=== PATIENT | female | born 1990 | race Caucasian/White ===

== ENCOUNTER → 2017-07-29 16:32 | Outpatient (CLI) | payer BC, SELFPAY ==
[2017-07-29 16:07] VITALS: BP 151/94; BMI 41.6
== END ==
PROVIDERS: Family Provider Family Medicine; PCP Family Medicine; Visit Provider Obstetrics & Gynecology
DX: O09.01 Supervision of pregnancy with history of infertility, first trimester (principal); Z3A.00 Weeks of gestation of pregnancy not specified
CPT/HCPCS: 36415; 86850; 86900

== ENCOUNTER → 2017-07-31 12:37 | Outpatient (CLI) | payer BC, SELFPAY ==
[2017-07-31 11:17] VITALS: BP 130/75
[2017-07-31 11:18] VITALS: BMI 41.6
[2017-07-31 16:57] LABS: Chlamydia Trachomatis by PCR Negative (Negative); Neisserai gonorrhoeae by PCR Negative (Negative); Probe Check PASS; Sample Adequacy Control PASS; Specimen Processing Control PASS
== END ==
PROVIDERS: Family Provider Family Medicine; PCP Family Medicine; Visit Provider Obstetrics & Gynecology
DX: O09.01 Supervision of pregnancy with history of infertility, first trimester (principal); Z3A.00 Weeks of gestation of pregnancy not specified
CPT/HCPCS: 87086; 87088; 87491; 87591

== ENCOUNTER → 2017-08-19 14:50 | Outpatient (CLI) | payer BC, SELFPAY ==
[2017-08-19 15:41] LABS: Absolute Lymphocyte Count 2.89 X10^3/ul (0.83-4.51); Absolute Neutrophil Count 8.2 X10^3/uL (2.0-7.7); Basophil# 0.02 X10^3/uL; Basophil% 0.2 % (0-1); Eosinophil# 0.09 X10^3/uL; Eosinophils% 0.8 % (0-5); Hematocrit 32.7 % (37-47); Hemoglobin 10.8 g/dl (12.0-15.0); Lymphocyte # 2.89 X10^3/ul (4.0); Lymphocyte % 24.3 % (19-41); Mean Corpuscular Hgb 25.2 pg (27.0-32.0); Mean Corpuscular Volume 76.2 fL (81-99); Mean Platelet Vol. 9.5 fl (6.2-12.0); Monocyte# 0.67 X10^3/uL; Monocyte% 5.6 % (0-10); Neutrophil # 8.18 X10^3/uL (2.7-7.7); Neutrophil % 68.9 % (47-70); Platelet Count 295 K/mm3 (150-450); RBC Distribution Width CV 15.2 % (11.6-14.6); RBC Distribution Width SD 42.5 fl (35.1-43.9); Red Blood Count 4.29 M/mm3 (4.2-5.4); White Blood Count 11.9 K/mm3 (4.4-11.0)
[2017-08-19 15:48] LABS: POSITIVE COUNT NO; POSITIVE DIFFERENTIAL NO; POSITIVE MORPHOLOGY NO
[2017-08-19 16:54] LABS: HIV - WCH Non-Reactive (Nonreactive); Rubella IgG 77.6 IU/mL
[2017-08-21 11:46] LABS: HEPATITIS B SURFACE AG Negative (Negative)
[2017-08-23 02:54] LABS: Rapid Plasmin Reagin (RPR) NONREACTIVE (NONREACTIVE)
== END ==
PROVIDERS: Family Provider Family Medicine; PCP Family Medicine; Visit Provider Obstetrics & Gynecology
DX: Z36.82 Encounter for antenatal screening for nuchal translucency (principal)
CPT/HCPCS: 85025; 86592; 86703; 86762; 86850; 86900; 87340

== ENCOUNTER → 2017-09-04 14:34 | Outpatient (CLI) | payer BC, SELFPAY ==
[2017-09-04 16:09] LABS: Glucose Challenge Gest 1H 50g 144 mg/dL (70-140)
== END ==
PROVIDERS: Family Provider Family Medicine; PCP Family Medicine; Visit Provider Obstetrics & Gynecology
DX: O09.01 Supervision of pregnancy with history of infertility, first trimester (principal); Z3A.00 Weeks of gestation of pregnancy not specified
CPT/HCPCS: 36415; 82950

== ENCOUNTER → 2017-09-18 06:49 | Outpatient (CLI) | payer BC, SELFPAY ==
[2017-09-18 07:31] LABS: Glucose GTT-Gestation. Fasting 104 mg/dL (<105)
[2017-09-18 09:36] LABS: Glucose GTT-Gestational 2 Hr 126 mg/dL (<165)
[2017-09-18 09:42] LABS: Glucose GTT-Gestational 1 Hr 193 mg/dL (<190)
[2017-09-18 10:48] LABS: Glucose GTT-Gestational 3 Hr 94 L (<145)
== END ==
PROVIDERS: Family Provider Family Medicine; PCP Family Medicine; Visit Provider Nurse Practitioner Women's Health
DX: O99.810 Abnormal glucose complicating pregnancy (principal); Z3A.00 Weeks of gestation of pregnancy not specified
CPT/HCPCS: 36415; 82951; 82952

== ENCOUNTER → 2017-09-30 11:25 | Outpatient (CLI) | payer BC, SELFPAY | PROVIDERS: Family Provider Family Medicine; PCP Family Medicine; Visit Provider Obstetrics & Gynecology Maternal & Fetal Medicine | DX: Z36.9 Encounter for antenatal screening, unspecified (principal) | CPT/HCPCS: 36415 ==

== ENCOUNTER → 2017-10-02 14:29 | Outpatient (CLI) | payer BC, SELFPAY | PROVIDERS: Visit Provider Obstetrics & Gynecology | DX: Z34.90 Encounter for supervision of normal pregnancy, unspecified, unspecified trimester (principal) | CPT/HCPCS: 87086; 87088 ==

== ENCOUNTER → 2017-10-16 11:14 | Outpatient (CLI) | payer BC, SELFPAY ==
--- NOTE | 2017-10-16 11:16 | US_ITS ---
STUDY: SECOND AND THIRD TRIMESTER OBSTETRICAL ULTRASOUND REASON FOR EXAM: Female, 27 years old. Evaluate anatomy LMP: Unknown. TECHNIQUE: Transabdominal PRIOR ULTRASOUND: None. FINDINGS: There is a single intrauterine fetus. The fetus is in a transverse lie with the head on the maternal right side. There is demonstrated cardiac activity with a heart rate of 138 bpm. There is a normal amniotic fluid volume. The largest amniotic fluid pocket measures 3.5 cm. The placenta is fundal in location. There are Grade 0 placental changes. The cervix measures 3.8 cm in length. The bilateral adnexal regions are normal. BIOMETRY: BPD: 4.6 cm: 20 weeks, 0 days HC: 17.3 cm: 19 weeks, 6 days AC: 14.9 cm: 20 weeks, 0 days FL: 3.2 cm: 20 weeks, 0 days CI: 80% FL/BPD: 69% FL/HC: FL/AC: 22% HC/AC: 1.18 age by current US: 20 weeks, 0 days. SHANTHI by current US: 03/05/2018. Estimated weight: 321 grams, +/- 47 grams, 58 %. Age by LMP: 19 weeks, 5 days. SHANTHI by LMP: 03/07/2018. ANATOMY: Gender: Female Cranium: Normal lateral ventricles. 0.6 cm Normal choroid plexus. Normal cerebellum. 1.90 cm Normal cisterna magna. 0.3 cm Normal face, nose and lips. Chest: The heart was not clearly visualized due to position. Abdomen/Pelvis: Normal diaphragm. Normal stomach. Normal abdominal wall. Normal cord insertion. There is limited visualization of a three-vessel umbilical cord. Normal kidneys. Normal bladder. Spine: Normal cervical spine. Normal thoracic spine. Normal lumbar spine. Normal sacrum. Extremities: Normal bilateral upper extremities. Normal bilateral lower extremities. US/OB Anatomy Scan IMPRESSION: Single viable intrauterine of approximately 20 weeks 0 days gestational age. A heart rate of 138 bpm is noted. There is limited visualization of the umbilical cord. The heart was not visualized due to position. No anatomical abnormalities were identified. Other findings as detailed above. Electronically Signed: Clyde Ruiz MD at 19:31 EDT , Service support ,
== END ==
LOC: US 11:15
PROVIDERS: Family Provider Family Medicine; PCP Family Medicine; Visit Provider Obstetrics & Gynecology
DX: O09.01 Supervision of pregnancy with history of infertility, first trimester (principal); Z3A.00 Weeks of gestation of pregnancy not specified
CPT/HCPCS: 76805

== ENCOUNTER → 2017-11-13 09:08 | Outpatient (CLI) | payer BC, SELFPAY ==
--- NOTE | 2017-11-13 09:11 | US_ITS ---
STUDY: SECOND AND THIRD TRIMESTER OBSTETRICAL ULTRASOUND - LIMITED REASON FOR EXAM: Female, 27 years old. Follow-up anatomy scan 4 three-vessel cord and four-chamber heart. LMP: 05/31/2017. GA (LMP) 23 week 5 day, with SHANTHI 03/07/2018. PRIOR ULTRASOUND: 10/16/2017 OB ultrasound. TECHNIQUE: Transabdominal ultrasound evaluation was performed. FINDINGS: Single live intrauterine gestation, breech presentation, amniotic fluid index 17.2 cm, cervix 5.27 cm in length, closed. Placenta anterior not low-lying. The placental tip terminates approximately 5 cm from the cervical os. cardiac rate is not recorded. Cardiac activity is observed. BIOMETRY: BPD: 5.94 cm: 24 weeks, 2 days HC: 22.04 cm: 24 weeks, 1 days AC: 18.8 cm: 23 weeks, 4 days FL: 4.18 cm: 23 weeks, 5 days Estimated weight 616 g. 39th percentile. age by current ultrasound 24 weeks 0 days, SHANTHI 03/05/2018. The heart is adequately evaluated demonstrating 4 normal-appearing cardiac chambers. The outflow tracts are not evaluated. Anterior abdominal wall is normal. Three-vessel umbilical cord is demonstrated. US/OB Limited With Biometrics IMPRESSION: Completion of anatomy survey. Satisfactory views of the heart and umbilical cord are obtained on today's study with 4 cardiac chambers are identified, and a normal 3 vessel cord. No other acute or maternal abnormality is evident. Measurements on today's study are closely concordant with expected dates. Electronically Signed: Mundo Sunni, at 17:29 EDT Tel , Service support ,
== END ==
PROVIDERS: Family Provider Family Medicine; PCP Family Medicine; Visit Provider Obstetrics & Gynecology
DX: Z04.8 Encounter for examination and observation for other specified reasons (principal); O32.1XX0 Maternal care for breech presentation, not applicable or unspecified; Z3A.24 24 weeks gestation of pregnancy
CPT/HCPCS: 76816

== ENCOUNTER → 2017-12-11 09:40 | Outpatient (CLI) | payer BC, SELFPAY ==
[2017-12-11 10:31] LABS: Absolute Lymphocyte Count 1.58 X10^3/ul (0.83-4.51); Absolute Neutrophil Count 8.1 X10^3/uL (2.0-7.7); Basophil# 0.01 X10^3/uL; Basophil% 0.1 % (0-1); Eosinophil# 0.07 X10^3/uL; Eosinophils% 0.7 % (0-5); Hematocrit 27.8 % (37-47); Hemoglobin 9.1 g/dl (12.0-15.0); Lymphocyte # 1.58 X10^3/ul (4.0); Lymphocyte % 15.3 % (19-41); Mean Corp Hgb Conc 32.7 g/gl (32-36); Mean Corpuscular Hgb 25.3 pg (27.0-32.0); Mean Corpuscular Volume 77.2 fL (81-99); Monocyte# 0.51 X10^3/uL; Monocyte% 4.9 % (0-10); Neutrophil # 8.14 X10^3/uL (2.7-7.7); Neutrophil % 78.8 % (47-70); POSITIVE COUNT NO; POSITIVE DIFFERENTIAL NO; POSITIVE MORPHOLOGY NO; Platelet Count 257 K/mm3 (150-450); RBC Distribution Width CV 14.7 % (11.6-14.6); RBC Distribution Width SD 41.9 fl (35.1-43.9); White Blood Count 10.3 K/mm3 (4.4-11.0)
[2017-12-11 10:47] LABS: Glucose Challenge Gest 1H 50g 135 mg/dL (70-140)
== END ==
PROVIDERS: Family Provider Family Medicine; PCP Family Medicine; Visit Provider Obstetrics & Gynecology
DX: O09.00 Supervision of pregnancy with history of infertility, unspecified trimester (principal)
CPT/HCPCS: 36415; 82950; 85025

== ENCOUNTER → 2017-12-18 06:55 | Outpatient (CLI) | payer BC, SELFPAY ==
[2017-12-18 08:18] LABS: Glucose GTT-Gestation. Fasting 85 mg/dL (<105)
[2017-12-18 08:49] LABS: Glucose GTT-Gestational 1 Hr 219 mg/dL (<190)
[2017-12-18 09:32] LABS: Glucose GTT-Gestational 2 Hr 147 mg/dL (<165)
[2017-12-18 10:57] LABS: Glucose GTT-Gestational 3 Hr 58 L (<145)
== END ==
LOC: LAB 06:56
PROVIDERS: Family Provider Family Medicine; PCP Family Medicine; Visit Provider Obstetrics & Gynecology
DX: O99.810 Abnormal glucose complicating pregnancy (principal)
CPT/HCPCS: 36415; 82951; 82952

== ENCOUNTER 2018-01-09 11:45 | Outpatient (CLI) | payer BC, SELFPAY ==
[2018-01-09 12:10] VITALS: BMI 43.4
[2018-01-09 13:09] LABS: Bacteria 0 SEEN /hpf (None Seen); Mucous, Urine 0 SEEN /hpf (<or=2+); Red Blood Cells-Urine 0 SEEN /hpf (0-5); Squamous Epithelial Cells - UA 0 SEEN /hpf (5-10); White Blood Cells 0 SEEN /hpf (0-5)
[2018-01-09 13:18] LABS: Color, Urine Yellow (Yellow); Glucose, Dipstick Normal (Normal); Ketone-Dipstick 5 mg/dl (Negative); Leukocyte Esterase-Dipstick Negative /ul (Negative); Nitrite-Dipstick Negative (Negative); Occult Blood-Urine Negative /ul (Negative); Protein-Dipstick Negative (Negative); Specific Gravity, Urine 1.005 (1.002-1.030); Urine Bilirubin Dipstick Negative (Negative); Urine Clarity Clear (Clear); Urine Urobilinogen Normal (Normal)
--- NOTE | 2018-01-10 03:30 | OB.TRI.NOTE ---
- Problem List (1) Abdominal pain affecting Status: Acute History of Present Illness Date of Service: 01/09/18 Was patient seen by the physician?: Yes Reason For Visit: ABD PAIN Date of Service: 01/09/18 History of Present Illness: right sided abdominal pain intermittent better with rest Allergies sumatriptan [From Imitrex] Allergy (Mild, Verified 01/08/18 09:07) Other Penicillins Allergy (Verified 01/08/18 09:07) Unknown - Pertinent Past Medical History Medical History: Past Medical History (Last Reviewed 01/08/18 @ 09:08 by Dominga Martinez) Hypertension Surgical History: Past Surgical History (Last Reviewed 01/08/18 @ 09:08 by Dominga Martinez) gallbladder surgery NST - FHR Rate Baby A Baseline: 140 Variability:: Moderate Accelerations:: 15 x 15 Decelerations:: None NST Reactive:: Yes FHR Category:: Category I Uterine Activity:: none Impression/Plan no contractions a/p abdominal pain likely round ligament pain reactive nst ut home reassuring
== END 2018-01-09 13:00 | disposition home or self-care (01) ==
LOC: WPOUT 11:57 → WP 11:58
PROVIDERS: Family Provider Family Medicine; PCP Family Medicine; Visit Provider Obstetrics & Gynecology
DX: O99.89 Other specified diseases and conditions complicating pregnancy, childbirth and the puerperium (principal); R10.9 Unspecified abdominal pain; Z3A.00 Weeks of gestation of pregnancy not specified
CPT/HCPCS: 59025; 59050; 81001; 99218; G0378

== ENCOUNTER 2018-01-15 13:00 | Outpatient (RCR) | payer BC, SELFPAY | END 2018-01-15 23:59 | LOC: NS 13:00 | PROVIDERS: Family Provider Family Medicine; PCP Family Medicine; Visit Provider Obstetrics & Gynecology | DX: O24.419 Gestational diabetes mellitus in pregnancy, unspecified control (principal); Z68.41 Body mass index [BMI] 40.0-44.9, adult; Z71.3 Dietary counseling and surveillance | CPT/HCPCS: 97802; G0108 ==

== ENCOUNTER → 2018-01-22 12:56 | Outpatient (CLI) | payer BC, SELFPAY ==
[2018-01-22 13:13] LABS: Protein, Urine (Random) 26.7 mg/dL (<11.9); Protein:Creat Ratio 162 mg/g CRE (0-200)
== END ==
PROVIDERS: Visit Provider Nurse Practitioner Women's Health
DX: R80.9 Proteinuria, unspecified (principal)
CPT/HCPCS: 82570; 84156

== ENCOUNTER → 2018-01-29 11:13 | Outpatient (CLI) | payer BC, SELFPAY ==
--- NOTE | 2018-01-29 11:15 | US_ITS ---
STUDY: SECOND AND THIRD TRIMESTER OBSTETRICAL ULTRASOUND - LIMITED REASON FOR EXAM: Female, 27 years old. growth. Gestational diabetes mellitus. G1. LMP: 05/31/2017. PRIOR ULTRASOUND: 11/13/2017. TECHNIQUE: Transabdominal ultrasound evaluation was performed. Transvaginal ultrasound utilized for cervix length assessment. FINDINGS: There is a single intrauterine fetus. The fetus is in a cephalic presentation. There is demonstrated cardiac activity with a heart rate of 136 bpm. There is a normal amniotic fluid volume. The largest amniotic fluid pocket measures 3.1 x 2.9 cm. The amniotic fluid index (ANNMARIE) is 11.3 cm. The placenta is anterior in location and is not low lying. There are Grade 1 placental changes. The cervix measures 2.6 cm in length on transvaginal ultrasound.. BIOMETRY: BPD: 8.8 cm: 35 weeks, 4 days HC: 31.7 cm: 35 weeks, 5 days AC: 31.1 cm: 35 weeks, 0 days FL: 6.8 cm: 35 weeks, 0 days Age by LMP: 34 weeks, 5 days. SHANTHI by LMP: 03/07/2018.. age by prior US: 35 weeks, 0 days. SHANTHI by prior US: 03/05/2018. age by current US: 35 weeks, 3 days. SHANTHI by current US: 03/02/2018. Estimated weight: 2596 grams, +/- 379 grams, 58 percentile. Gender: Indeterminant US/OB Limited With Biometrics IMPRESSION: 1. Single live intrauterine vertex presentation 35 week 3 day gestation with an SHANTHI of 03/02/2018, SHANTHI by LMP 03/07/2018, by prior ultrasound 03/05/2018. 2. Grade 1 anterior placenta, not low lying, no abruption. 3. Cervix length 2.6 cm on transvaginal ultrasound. 4. Normal amniotic fluid index. 5. Estimated weight 2596 g or 58 percentile. Electronically Signed: Alba Willams MD at 2:05 EDT , Service support ,
== END ==
LOC: US 11:15
PROVIDERS: Family Provider Family Medicine; PCP Family Medicine; Visit Provider Nurse Practitioner Women's Health
DX: O24.419 Gestational diabetes mellitus in pregnancy, unspecified control (principal); Z3A.00 Weeks of gestation of pregnancy not specified
CPT/HCPCS: 76816

== ENCOUNTER 2018-02-05 10:50 | Observation (INO) | payer BC, SELFPAY ==
[2018-02-05 10:51] VITALS: BMI 45.1
[2018-02-05 11:17] LABS: Mucous, Urine 0 SEEN /hpf (<or=2+)
[2018-02-05 11:26] LABS: Color, Urine Yellow (Yellow); Glucose, Dipstick Normal (Normal); Hematocrit 32.8 % (37-47); Hemoglobin 10.4 g/dl (12.0-15.0); Ketone-Dipstick Negative (Negative); Leukocyte Esterase-Dipstick 500 /ul (Negative); Mean Corp Hgb Conc 31.7 g/gl (32-36); Mean Corpuscular Hgb 24.6 pg (27.0-32.0); Mean Corpuscular Volume 77.7 fL (81-99); Mean Platelet Vol. 10.8 fl (6.2-12.0); Nitrite-Dipstick Negative (Negative); Occult Blood-Urine 250 /ul (Negative); Platelet Count 288 K/mm3 (150-450); Protein-Dipstick 30 mg/dl (Negative); RBC Distribution Width CV 16.3 % (11.6-14.6); RBC Distribution Width SD 46.2 fl (35.1-43.9); Red Blood Count 4.22 M/mm3 (4.2-5.4); Scan Indicated on CBC? Y/N NO; Urine Bilirubin Dipstick Negative (Negative); Urine Clarity Sl. Cloudy (Clear); Urine Urobilinogen Normal (Normal); White Blood Count 12.4 K/mm3 (4.4-11.0)
[2018-02-05 11:31] LABS: Squamous Epithelial Cells - UA 5-10 SEEN /hpf (5-10)
[2018-02-05 11:32] LABS: Bacteria 2+ /hpf (None Seen); Red Blood Cells-Urine 25-50 SEEN /hpf (0-5); White Blood Cells 25-50 SEEN /hpf (0-5)
[2018-02-05 11:36] LABS: Partial Thromboplast Time 26.7 Seconds (24.1-36.2)
[2018-02-05 11:46] LABS: Creatinine, Urine (random) < 13.00 mg/dL (NO RANGE EST.); Protein, Urine (Random) 51.2 mg/dL (<11.9)
[2018-02-05 11:52] LABS: AST(SGOT) 9 U/L (15-37); Alanine Aminotransfer ALT/SGPT 12 U/L (13-56); Creatinine, Serum 0.53 mg/dL (0.55-1.02); EST Glomerular Filtration Rate 145 mL/min (>60); Est Glom Filt Rate - Afr Amer 175 mL/min (>60); Uric Acid 4.1 mg/dL (2.6-6.0)
[2018-02-05] MEDS: Betamethasone/Betamethasone 30 MG/5 ML Vial 12 MG IM (12:20)
[2018-02-05] MEDS: Nitrofurantoin Macrocrystals 100 MG Capsule PO (14:01)
[2018-02-05 16:15] LABS: Bedside Glucose 131 mg/dL (70-110)
[2018-02-05 20:21] LABS: Bedside Glucose 196 mg/dL (70-110)
[2018-02-05] MEDS: Insulin Lispro 100 UNIT/ML INSULN.PEN SC (21:39)
--- NOTE | 2018-02-05 22:19 | PCM.HP.OB ---
- Problem List (1) Elevated blood pressure affecting in third trimester, antepartum Status: Acute (2) Gestational diabetes mellitus in third trimester Status: Acute Qualifiers: (3) Anemia during in third trimester Status: Acute Comment: cbc monthly (4) GBS (group B streptococcus) UTI complicating Status: Acute Qualifiers: Comment: Presumptive low growth GBS. Antibiotic sent. Repeat urine culture (5) with history of infertility Status: Acute Qualifiers: Comment: SHANTHI 03/07/18 girl on us Shane (6) screening encounter Status: Acute Comment: NT done 08/19/17- normal (7) Body mass index (BMI) of 40.1 to 44.9 in adult Status: Acute Comment: first trimester glucola and growth us q 4 weeks in third trimester and weekly NST starting at 32 weeks History Date of Admission: 02/05/18 Final SHANTHI: 03/07/18 Gestational age: 35 Weeks and 5 Days History of this : This is a 27 year-old, at 35w5d weeks gestational age presents with elevated bps. she has had a complicated by diet controlled gestational diabetes. she denies any vaginal bleeding or LOF, and admits good fm. she denies any regular ctx. she denies any POLANCO or blurry vision Medical History: Medical History (Last Reviewed 02/05/18 @ 10:22 by Bing Robins) Gestational diabetes O24.419 Hypertension I10 Surgical History: Surgical History (Last Reviewed 02/05/18 @ 10:22 by Bing Robins) gallbladder surgery Allergies sumatriptan [From Imitrex] Allergy (Mild, Verified 02/05/18 10:23) Other Penicillins Allergy (Verified 02/05/18 10:23) Unknown Home Medications: Home Medications vitamin,calcium,qdumibbe-gddl-cdfto acid tablet 1 tab PO QDAY 07/29/17 blood sugar diagnostic strips See Dose Instructions .ROUTE .MEDSUPPLY #100 ea 12/18/17 blood-glucose meter See Dose Instructions .ROUTE .MEDSUPPLY #1 ea 12/18/17 Smoking Status: Never smoker Alcohol: None Number of Fetus(es): 1 Heart Tracin moderate vairability reactive no decels cat I tracing TOCO Analysis: no decels History Past Pregnancies: Past Pregnancies Delivery Date Name GA/Weeks Outcome Route Weight Infant Gender Labor Length Anesthesia Delivery Location Provider FOB Labs: Mom[facility] Microbiology 02/05/18 10:50 Urine, Clean Catch Urine Culture - Pending Mom[facility] Labs & Results 02/05/18 02/05/18 02/05/18 10:50 10:50 10:50 WBC 12.4 H RBC 4.22 Hgb 10.4 L Hct 32.8 L MCV 77.7 L MCH 24.6 L MCHC 31.7 L RDW 16.3 H RDW Differential 46.2 H Plt Count 288 MPV 10.8 PT 13.0 INR 1.0 APTT 26.7 Creatinine Estim Creat Clear Calc Est GFR (MDRD) Af Amer Est GFR (MDRD) Non-Af Uric Acid AST ALT Urine Color Urine Clarity Urine pH Ur Specific [place] Urine Protein Urine Glucose (UA) Urine Ketones Urine Occult Blood Urine Nitrite Urine Bilirubin Urine Urobilinogen Ur Leukocyte Esterase Urine RBC Urine WBC Ur Squamous Epith Cells Urine Bacteria Urine Mucus U Random Total Protein 51.2 H Urine Creatinine < 13.00 Protein/Creatinin Ratio TNP POC Glucose 02/05/18 02/05/18 02/05/18 10:50 10:50 16:09 WBC RBC Hgb Hct MCV MCH MCHC RDW RDW Differential Plt Count MPV PT INR APTT Creatinine 0.53 L Estim Creat Clear Calc 112.50 Est GFR (MDRD) Af Amer 175 Est GFR (MDRD) Non-Af 145 Uric Acid 4.1 AST 9 L ALT 12 L Urine Color Yellow Urine Clarity Sl. Cloudy Urine pH 8.0 Ur Specific [place] 1.010 Urine Protein 30 H Urine Glucose (UA) Normal Urine Ketones Negative Urine Occult Blood 250 H Urine Nitrite Negative Urine Bilirubin Negative Urine Urobilinogen Normal Ur Leukocyte Esterase 500 H Urine RBC 25-50 SEEN Urine WBC 25-50 SEEN Ur Squamous Epith Cells 5-10 SEEN Urine Bacteria 2+ Urine Mucus 0 SEEN U Random Total Protein Urine Creatinine Protein/Creatinin Ratio POC Glucose 131 H 02/05/18 20:06 WBC RBC Hgb Hct MCV MCH MCHC RDW RDW Differential Plt Count MPV PT INR APTT Creatinine Estim Creat Clear Calc Est GFR (MDRD) Af Amer Est GFR (MDRD) Non-Af Uric Acid AST ALT Urine Color Urine Clarity Urine pH Ur Specific [place] Urine Protein Urine Glucose (UA) Urine Ketones Urine Occult Blood Urine Nitrite Urine Bilirubin Urine Urobilinogen Ur Leukocyte Esterase Urine RBC Urine WBC Ur Squamous Epith Cells Urine Bacteria Urine Mucus U Random Total Protein Urine Creatinine Protein/Creatinin Ratio POC Glucose 196 H Social History Smoking Status Never smoker Expected Infant Delivery Method: Spontaneous Vaginal Review of Systems Constitutional: Denies: Fever, Malaise Eyes: Denies: Blurred vision, Vision Change HEENT: Denies: Head Aches, Visual Changes Cardiovascular: Denies: Chest Pain, Palpitations Respiratory: Denies: Cough, Shortness of Breath, Wheezing Gastrointestinal: Denies: Abdominal Pain, Diarrhea, Nausea, Vomiting Genitourinary: Denies: Dysuria, Hematuria Musculoskeletal: Denies: Joint Pain, Muscle pain Skin: Denies: Lesions, Rash Neurological: Denies: Blurred vision, Focal weakness, Headaches Psychiatric: Denies: Anxiety, Depression Endocrine: Denies: Heat/ Cold Intolerance Hematologic/ Lymphatic: Denies: Easy Bruising, Easy Bleeding Physical Exam General: Alert, Cooperative, No apparent distress HEENT: Atraumatic, Normocephalic. Negative for: Thyromegaly, Lymphadenopathy Cardiovascular: Regular rate Lungs: Normal air movement Abdomen: Soft, Non Tender, Gravid Neurological: Deep Tendon Reflexes 2+/4 and Symmetrical, Neuro grossly intact. 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 Negative for: Vulvar lesions Estimated gestational size: Appropriate for gestational size Presentation: Cephalic Assessment/Plan All Active Problems (Last Reviewed 02/05/18 @ 10:22 by Bing Robins) Elevated blood pressure affecting in third trimester, antepartum (Acute) Abdominal pain affecting (Acute) Gestational diabetes mellitus in third trimester (Acute) Anemia during in third trimester (Acute) GBS (group B streptococcus) UTI complicating (Acute) with history of infertility (Acute) screening encounter (Acute) Body mass index (BMI) of 40.1 to 44.9 in adult (Acute) Abnormal glucose affecting (Resolved) Evaluate anatomy not seen on prior sonogram (Resolved) This is a 27 year-old, at 35w5d weeks gestational age with elevated bps 1. gestational hypertension- labs normal, 24 hour urine in process. monitor bps. plan IOL 37 weeks, dc home tomorrow if bps stable 2. prematurity- give steroids 3. GDMA1- SSI, diet
[2018-02-06] MEDS: Nitrofurantoin Macrocrystals 100 MG Capsule PO (08:23)
--- NOTE | 2018-02-06 08:24 | NURSING ---
Unable to take patient blood sugar due to downtime. Patient used her own personal device while RN in room. blood xcsrd=[id number]. No insulin to be given per sliding scale.
[2018-02-06] MEDS: Betamethasone/Betamethasone 30 MG/5 ML Vial 12 MG IM (12:15)
[2018-02-06 13:24] LABS: 24 Hour Urine Protein 979.8 mg/24HR (<150 MG/24HR); 24HR. UA Prot. Total Volume 1925 mL; Urine Protein (24 Hour) 50.9 mg/dL (<11.9)
[2018-02-06 13:26] LABS: 24HR. Urine Creatinine 1.67 g/24 HR (0.70-1.90)
== END 2018-02-06 12:35 | disposition home or self-care (01) ==
LOC: WPOUT 02-06 10:02
PROVIDERS: Admitting Provider Obstetrics & Gynecology; Family Provider Family Medicine; PCP Family Medicine; Visit Provider Obstetrics & Gynecology
DX: O13.3 Gestational [pregnancy-induced] hypertension without significant proteinuria, third trimester (principal); O24.410 Gestational diabetes mellitus in pregnancy, diet controlled; Z3A.35 35 weeks gestation of pregnancy; O99.820 Streptococcus B carrier state complicating pregnancy; O99.013 Anemia complicating pregnancy, third trimester
CPT/HCPCS: 36415; 59025; 59050; 81001; 82565; 82570; 82962; 84156; 84450; 84460; 84550; 85027; 85610; 85730; 87086; 87088; 96372; 99218; J7120; A4216; G0378; J0702

== ENCOUNTER → 2018-02-10 13:55 | Outpatient (CLI) | payer BC, SELFPAY ==
[2018-02-10 16:01] LABS: Absolute Lymphocyte Count 2.12 X10^3/ul (0.83-4.51); Absolute Neutrophil Count 9.3 X10^3/uL (2.0-7.7); Basophil# 0.01 X10^3/uL; Basophil% 0.1 % (0-1); Eosinophil# 0.05 X10^3/uL; Eosinophils% 0.4 % (0-5); Hematocrit 33.4 % (37-47); Hemoglobin 10.6 g/dl (12.0-15.0); Lymphocyte # 2.12 X10^3/ul (4.0); Mean Corp Hgb Conc 31.7 g/gl (32-36); Mean Corpuscular Volume 78.8 fL (81-99); Mean Platelet Vol. 11.4 fl (6.2-12.0); Monocyte# 0.95 X10^3/uL; Monocyte% 7.6 % (0-10); Neutrophil # 9.34 X10^3/uL (2.7-7.7); Neutrophil % 74.7 % (47-70); Platelet Count 280 K/mm3 (150-450); RBC Distribution Width CV 16.4 % (11.6-14.6); RBC Distribution Width SD 47.1 fl (35.1-43.9); Red Blood Count 4.24 M/mm3 (4.2-5.4); White Blood Count 12.5 K/mm3 (4.4-11.0)
[2018-02-10 16:04] LABS: POSITIVE COUNT NO; POSITIVE DIFFERENTIAL NO; POSITIVE MORPHOLOGY NO
[2018-02-10 17:06] LABS: ALB/GLOB Ratio 0.6 RATIO (0.9-2.4); AST(SGOT) 11 U/L (15-37); Alanine Aminotransfer ALT/SGPT 12 U/L (13-56); Albumin, Serum 2.4 g/dL (3.2-5.0); Alkaline Phosphatase 103 U/L (45-117); Anion Gap 12 (5-15); BUN 16 mg/dL (7-18); BUN/Creat Ratio 26.8 RATIO (10-20); Calcium,Total 9.1 mg/dL (8.5-10.1); Chloride 109 mmol/L (98-107); EST Glomerular Filtration Rate 126 mL/min (>60); Est Glom Filt Rate - Afr Amer 152 mL/min (>60); Globulin 4.2 g/dL (2.2-4.2); Glucose 85 mg/dL (74-106); Potassium 3.9 mmol/L (3.5-5.1); Protein, Total 6.6 g/dL (6.4-8.2); Sodium Level 143 mmol/L (136-145); Total Bilirubin < 0.10 mg/dL (0.20-1.00)
== END ==
LOC: LAB 13:57
PROVIDERS: Family Provider Family Medicine; PCP Family Medicine; Visit Provider Obstetrics & Gynecology
DX: O09.00 Supervision of pregnancy with history of infertility, unspecified trimester (principal); Z3A.00 Weeks of gestation of pregnancy not specified
CPT/HCPCS: 36415; 80053; 85025

== ENCOUNTER 2018-02-10 21:46 | Inpatient (IN) | payer BC, SELFPAY ==
[2018-02-10] MEDS: Lactated Ringers 1,000 ML 50 ML IV (22:40)
[2018-02-10 23:01] LABS: Bedside Glucose 95 mg/dL (70-110)
[2018-02-10 23:05] LABS: Hematocrit 30.1 % (37-47); Hemoglobin 10.2 g/dl (12.0-15.0); Mean Corp Hgb Conc 33.9 g/gl (32-36); Mean Corpuscular Hgb 26.2 pg (27.0-32.0); Mean Corpuscular Volume 77.4 fL (81-99); Mean Platelet Vol. 11.7 fl (6.2-12.0); Platelet Count 256 K/mm3 (150-450); RBC Distribution Width CV 16.1 % (11.6-14.6); RBC Distribution Width SD 43.7 fl (35.1-43.9); Red Blood Count 3.89 M/mm3 (4.2-5.4); White Blood Count 14.4 K/mm3 (4.4-11.0)
[2018-02-10 23:10] LABS: Scan Indicated on CBC? Y/N NO
[2018-02-10 23:18] VITALS: BMI 45.3
[2018-02-10] MEDS: Magnesium Sulfate 20 GM/500 ML BAG IV (23:30)
[2018-02-11 00:10] LABS: Bedside Glucose 93 mg/dL (70-110)
[2018-02-11] MEDS: 0.9% Normal Saline 100 ML IV.SOLN. INTRA-UTER (00:27)
[2018-02-11] MEDS: Oxytocin 30 units/NS 500 ml 30 UNITS/500 ML IV.SOLN IV (00:48)
--- NOTE | 2018-02-11 00:55 | PCM.HP.OB ---
- Problem List (1) Severe preeclampsia Status: Acute (2) Gestational diabetes mellitus in third trimester Status: Acute Qualifiers: (3) Anemia during in third trimester Status: Acute Comment: cbc monthly (4) GBS (group B streptococcus) UTI complicating Status: Acute Qualifiers: Comment: Presumptive low growth GBS. Antibiotic sent. Repeat urine culture (5) with history of infertility Status: Acute Qualifiers: Comment: SHANTHI 03/07/18 girl on us Shane (6) screening encounter Status: Acute Comment: NT done 08/19/17- normal (7) Body mass index (BMI) of 40.1 to 44.9 in adult Status: Acute Comment: first trimester glucola and growth us q 4 weeks in third trimester and weekly NST starting at 32 weeks History Date of Admission: 02/05/18 Final SHANTHI: 03/07/18 Gestational age: 36 Weeks and 4 Days History of this : This is a 27 year-old, , at 36 weeks gestational age presents with severely elevated blood pressures and intermittent headache. she received steroids last for elevated bps and had an elevated 24 hour urine. she denies any vb lof and admits good fm Medical History: Medical History (Last Reviewed 02/05/18 @ 10:22 by Bing Robins) Gestational diabetes O24.419 Hypertension I10 Surgical History: Surgical History (Last Reviewed 02/05/18 @ 10:22 by Bing Robins) gallbladder surgery Allergies sumatriptan [From Imitrex] Allergy (Mild, Verified 02/05/18 10:23) Other Penicillins Allergy (Verified 02/05/18 10:23) Unknown Home Medications: Home Medications vitamin,calcium,qrhsshyw-kakq-zaykw acid tablet 1 tab PO QDAY 07/29/17 blood sugar diagnostic strips See Dose Instructions .ROUTE .MEDSUPPLY #100 ea 12/18/17 blood-glucose meter See Dose Instructions .ROUTE .MEDSUPPLY #1 ea 12/18/17 Humalog 4 unit SQ PRN PRN 02/10/18 Smoking Status: Never smoker Alcohol: None Number of Fetus(es): 1 Heart Tracin moderate variability reactive no decels TOCO Analysis: irregular History Past Pregnancies: Past Pregnancies Delivery Date Name GA/Weeks Outcome Route Weight Gender Labor Length Anesthesia Delivery Location Provider FOB Labs: Mom's Labs & Results 02/10/18 02/10/18 02/10/18 22:40 22:40 22:44 WBC 14.4 H RBC 3.89 L Hgb 10.2 L Hct 30.1 L MCV 77.4 L MCH 26.2 L MCHC 33.9 RDW 16.1 H RDW Differential 43.7 Plt Count 256 MPV 11.7 POC Glucose 95 Blood Type A POSITIVE Antibody Screen NEGATIVE 02/10/18 23:37 WBC RBC Hgb Hct MCV MCH MCHC RDW RDW Differential Plt Count MPV POC Glucose 93 Blood Type Antibody Screen Course Did the patient receive Yes care? Labs Blood Type: A RH: POSITIVE RPR/VDRL/Syphilis Nonreactive Rubella status Immune HbSAg Negative Date Done: 08/19/17 Chlamydia Negative Gonorrhea Negative HIV/AIDS Non-Reactive Group B Strep: Collected on Admission Other Lab Procedures/Results/ GBS DONE IN OFFICE TODAY Comments: Current Obstetrical History Gestational Diabetes Yes Incompetent Cervix No Infertility Yes: took medication IUGR No Macrosomia No Hypertension/Pre-eclampsia Yes Placenta Previa/Abruption No PTL/PROM No Uterine anomaly No Oligohydramnios No Polyhydramnios No Multiple gestation No Past Medical History Asthma No Diabetes No Hypertension No Heart disease No Mitral valve prolapse No Neurologic/Seizure disorder/ Yes: migraines Migraines Kidney disease No Liver disease No Varicosities No Clotting disorders/Hx of DVT No Thyroid Dysfunction No Other medical diseases No Psychiatric disorders No Major trauma No Abnormal PAP smear No Sleep apnea No Mammogram in the last 2 years No Medications Taken During Reason for taking medication [ GIVEN LAST SAT AND 2 DOSES [employer]] Social History Marital Status: Hx Smoking No Smoking Status Never smoker Expected Infant Delivery Method: Spontaneous Vaginal Review of Systems Constitutional: Denies: Fever, Malaise Eyes: Denies: Blurred vision, Vision Change HEENT: Reports: Head Aches. Denies: Visual Changes Cardiovascular: Denies: Chest Pain, Palpitations Respiratory: Denies: Cough, Shortness of Breath, Wheezing Gastrointestinal: Denies: Abdominal Pain, Diarrhea, Nausea, Vomiting Genitourinary: Denies: Dysuria, Hematuria Musculoskeletal: Denies: Joint Pain, Muscle pain Skin: Denies: Lesions, Rash Neurological: Denies: Blurred vision, Focal weakness, Headaches Psychiatric: Denies: Anxiety, Depression Endocrine: Denies: Heat/ Cold Intolerance Hematologic/ Lymphatic: Denies: Easy Bruising, Easy Bleeding Physical Exam General: Alert, Cooperative, No apparent distress HEENT: Atraumatic, Normocephalic. Negative for: Thyromegaly, Lymphadenopathy Cardiovascular: Regular rate Lungs: Normal air movement Abdomen: Soft, Non Tender, Gravid Neurological: Deep Tendon Reflexes 2+/4 and Symmetrical, Neuro grossly intact. 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 Negative for: Vulvar lesions Estimated gestational size: Appropriate for gestational size Presentation: Cephalic Cervix Dilation (cm): 2 Station: -3 Effacement (%): 50 Assessment/Plan All Active Problems (Last Reviewed 02/05/18 @ 10:22 by Bing Robins) Elevated blood pressure affecting in third trimester, antepartum (Acute) Severe preeclampsia (Acute) Abdominal pain affecting (Acute) Gestational diabetes mellitus in third trimester (Acute) Anemia during in third trimester (Acute) GBS (group B streptococcus) UTI complicating (Acute) with history of infertility (Acute) screening encounter (Acute) Body mass index (BMI) of 40.1 to 44.9 in adult (Acute) Abnormal glucose affecting (Resolved) Evaluate anatomy not seen on prior sonogram (Resolved) This is a 27 year-old, at 36 weeks gestational age presents IOL severe preeclampsia 1. severe preeclampsia- magnesium IV and s/p one dose IV labetalol, labs today WNL 2. GBS positive urine- give ancef, nonanaphylactic allergy to PCN 3. prematurity- s/p bmz x 2 last week 4. GDMA1- q4 hour in latent phase q 1 hour in active phase.
[2018-02-11] MEDS: Labetalol 100 MG Tablet PO ×3 (01:13→20:31)
[2018-02-11 02:10] LABS: Bedside Glucose 97 mg/dL (70-110)
[2018-02-11] MEDS: Ondansetron 4 MG/2 ML Vial IV (03:04)
[2018-02-11 03:16] LABS: Bedside Glucose 99 mg/dL (70-110)
[2018-02-11] MEDS: Lactated Ringers 1,000 ML 50 ML IV (03:50)
[2018-02-11] MEDS: fentaNYL-bupivacaine (epidural) 100 ML BAG EPIDURAL ×3 (04:13→14:18)
[2018-02-11 04:26] LABS: Bedside Glucose 103 mg/dL (70-110)
[2018-02-11 05:16] LABS: Bedside Glucose 100 mg/dL (70-110)
[2018-02-11 06:20] LABS: Bedside Glucose 90 mg/dL (70-110)
[2018-02-11 07:11] LABS: Bedside Glucose 95 mg/dL (70-110)
[2018-02-11 08:20] LABS: Bedside Glucose 97 mg/dL (70-110)
[2018-02-11 09:06] LABS: Bedside Glucose 95 mg/dL (70-110)
[2018-02-11] MEDS: Cefazolin 1 GM/50 ML BAG IV ×2 (09:06→17:19)
[2018-02-11 09:56] LABS: Bedside Glucose 92 mg/dL (70-110)
[2018-02-11] MEDS: Magnesium Sulfate 20 GM/500 ML BAG IV ×2 (10:46→20:29)
[2018-02-11 11:10] LABS: Bedside Glucose 90 mg/dL (70-110)
[2018-02-11 12:10] LABS: Bedside Glucose 92 mg/dL (70-110)
[2018-02-11 13:02] LABS: Bedside Glucose 87 mg/dL (70-110)
[2018-02-11 14:15] LABS: Bedside Glucose 110 mg/dL (70-110)
[2018-02-11 15:16] LABS: Bedside Glucose 103 mg/dL (70-110)
[2018-02-11 16:06] LABS: Bedside Glucose 108 mg/dL (70-110)
[2018-02-11 16:56] LABS: Bedside Glucose 99 mg/dL (70-110)
--- NOTE | 2018-02-11 17:59 | PCM.PN.BLA ---
Progress Note fht 130-140 moderate variability reactiv chad decels toco q 4-5 inadequate. bps within normal range, on labetalol 100mg BID. magnesium has been on, pitocin wash out and then restarted pitocin. will increase pit to 24 mU to obtain adequate ctx. magnesium turned off temporarily, patient denies any POLANCO or BV. continue to monitor and obtain adequate contractions. 6 cm dilated
[2018-02-11 18:00] LABS: Bedside Glucose 105 mg/dL (70-110)
[2018-02-11 18:51] LABS: Bedside Glucose 122 mg/dL (70-110)
[2018-02-11 20:01] LABS: Bedside Glucose 101 mg/dL (70-110)
--- NOTE | 2018-02-11 21:30 | PCM.OB.VAG ---
- Problem List (1) Severe preeclampsia Status: Acute (2) Gestational diabetes mellitus in third trimester Status: Acute Qualifiers: (3) Anemia during in third trimester Status: Acute Comment: cbc monthly (4) GBS (group B streptococcus) UTI complicating Status: Acute Qualifiers: Comment: Presumptive low growth GBS. Antibiotic sent. Repeat urine culture (5) with history of infertility Status: Acute Qualifiers: Comment: SHANTHI 03/07/18 girl on us Shane (6) screening encounter Status: Acute Comment: NT done 08/19/17- normal (7) Body mass index (BMI) of 40.1 to 44.9 in adult Status: Acute Comment: first trimester glucola and growth us q 4 weeks in third trimester and weekly NST starting at 32 weeks Vaginal Delivery Maternal Presentation: Medically Indicated Induction 27 yo @ 36w4d presents for IOL severe preeclampsia. she underwent IOL with pit and a green bulb followed by pitocin and arom Method of Induction: Pitocin, Green Bulb Medical Reason for Induction: Preeclampsia, eclampsia Amniotic Membrane Rupture Type: Artificial Amniotic Fluid Description: Clear Final SHANTHI: 03/07/18 Gestational age: 36 Weeks and 4 Days Date of Procedure: 02/11/18 Pre-Operative Diagnosis: iol pree Post-Operative Diagnosis: same Surgery/ Procedure Performed: Spontaneous Vaginal Delivery Type of Anesthesia: Epidural Description of Procedure: Patient began pushing and delivered the head in the OSBALDO presentation. The head was delivered atraumatically and a loose nuchal cord ?1 was identified and easily reduced over the 's head. The anterior and posterior shoulders delivered without complication followed by the rest of the infant and the was placed on the maternal abdomen. Delayed cord clamping was employed for approximately 60 seconds. Cord was clamped and cut and gentle traction was applied to the cord and the placenta delivered spontaneously immediately following it was noted to be intact with three-vessel cord. The perineum and vagina were inspected and noted to have a small first degree laceration repaired in the usual fashion. EBL was 100 cc. Patient and tolerated delivery well. Presentation: OSBALDO Placental Delivery Description: Spontaneous Placenta Disposition: [facility] Cord Vessel Description: 3 Vessels Cord Entanglement: Around neck x 1, loose Estimated Blood Loss: 100 A gender: Female Episiotomy Description: None Laceration: Perineal Extension/lac, 1st degree Medications given after delivery: IV Pitocin Complications: None
[2018-02-11] MEDS: Oxytocin 30 units/NS 500 ml 30 UNITS/500 ML IV.SOLN 334 UNITS IV (22:35)
[2018-02-11] MEDS: Oxytocin 30 units/NS 500 ml 30 UNITS/500 ML IV.SOLN 167 UNITS IV (23:05)
[2018-02-11 23:11] LABS: Bedside Glucose 97 mg/dL (70-110)
[2018-02-11 23:11] LABS: Bedside Glucose 102 mg/dL (70-110)
[2018-02-11 23:15] LABS: Bedside Glucose 104 mg/dL (70-110)
[2018-02-12] VITALS (45 sets, daily range): BP systolic 120–198; BP diastolic 65–93; PULSE 72–100; RESP 16–18; TEMP 36.1–36.8; O2SAT 97–100
[2018-02-12] MEDS: Magnesium Sulfate 20 GM/500 ML BAG IV ×2 (01:36→13:28)
[2018-02-12] MEDS: Lactated Ringers 1,000 ML 15 ML IV (01:36)
--- NOTE | 2018-02-12 07:53 | PCM.PN.OB ---
Patient Problems: Active and Suspected Problems (Last Reviewed 02/05/18 @ 10:22 by Bing Robins) Severe preeclampsia (Acute) Subjective: No CP, SOB. Note elevated BP at 0730. Pain controlled. Baby in special care for low body temp and monitor blood sugars. - Physical Exam General: Alert, Oriented x3 Abdomen: Soft, Non Tender, - - FF below U Vital Signs Temp Pulse Resp BP Pulse Ox 97.0 F L 81 18 140/68 H 99 02/12/18 06:30 02/12/18 06:30 02/12/18 06:30 02/12/18 06:30 02/12/18 06:30 Oxygen Delivery Method Room Air Weight: 232 lb Body Mass Index (BMI) 45.3 Intake and Output for Last 24 Hours 02/10/18 02/11/18 02/12/18 23:59 23:59 23:59 Intake Total 390 / 390 Output Total 717 / 717 1550 / 1550 Balance -717 / -717 -1160 / -1160 POC Glucose 02/11/18 02/11/18 02/11/18 23:07 21:39 20:48 POC Glucose 104 102 97 02/11/18 02/11/18 02/11/18 19:41 18:42 17:53 POC Glucose 101 122 H 105 02/11/18 02/11/18 02/11/18 16:52 15:55 15:12 POC Glucose 99 108 103 02/11/18 02/11/18 02/11/18 14:12 12:54 11:59 POC Glucose 110 87 92 02/11/18 02/11/18 02/11/18 11:02 09:46 09:00 POC Glucose 90 92 95 02/11/18 07:56 POC Glucose 97 Medical Necessity - Tobacco Use Smoking Status: Never smoker Assessment/Plan All Active Problems (Last Reviewed 02/05/18 @ 10:22 by Bing Robins) Elevated blood pressure affecting in third trimester, antepartum (Acute) Severe preeclampsia (Acute) Abdominal pain affecting (Acute) Gestational diabetes mellitus in third trimester (Acute) Anemia during in third trimester (Acute) GBS (group B streptococcus) UTI complicating (Acute) with history of infertility (Acute) screening encounter (Acute) Body mass index (BMI) of 40.1 to 44.9 in adult (Acute) Abnormal glucose affecting (Resolved) Evaluate anatomy not seen on prior sonogram (Resolved) Consult Dr. Garcia and will start labetalol 100mg bid and follow hypertensive protocol if continue elevation. . Otherwise routine care.
[2018-02-12] MEDS: Labetalol 100 MG Tablet PO (08:04)
[2018-02-12 08:05] LABS: Bedside Glucose 91 mg/dL (70-110)
--- NOTE | 2018-02-12 08:58 | NURSING ---
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 States will talk to Dr. Garcia about plan of care. Dr. Garcia called RN @ [phone], updated on last two pressures 170/86 and @ 0740 159/85, orders to start Labetalol PO 100 mg BID and initiate Labetalol Hypertensive protocol if BP >160/110 x 2. Orders read back to
[2018-02-12] MEDS: Labetalol 200 MG Tablet PO (20:06)
--- NOTE | 2018-02-12 20:13 | NURSING ---
Dr. Garcia called and updated on BP @ 1930 180/93 then 10 minute follow up pressure 171/88. Plan per Dr. Garcia is 20 mg IV Labetalol NOW and up dose to 200 mg PO BID give now. Patient denies any symptoms.
[2018-02-13] VITALS (33 sets, daily range): BP systolic 109–191; BP diastolic 56–97; PULSE 63–106; RESP 16–20; TEMP 36.4–36.6; O2SAT 97–99
--- NOTE | 2018-02-13 07:53 | PCM.PN.OB ---
Patient Problems: Active and Suspected Problems (Last Reviewed 02/05/18 @ 10:22 by Bing Robins) Severe preeclampsia (Acute) Subjective: Doing well. BPs better controlled with increased dose labetalol. Denies CP, SOB. She is concerned with tremor in left hadn, has had in past and was evaluated but this has been more persistent. Baby still in special care - Physical Exam General: Alert, Oriented x3 Abdomen: Soft, Non Tender, - - FF below U Vital Signs Temp Pulse Resp BP Pulse Ox 98.1 F 77 16 134/66 H 99 02/12/18 21:30 02/13/18 03:20 02/13/18 03:20 02/13/18 03:20 02/12/18 22:30 Oxygen Delivery Method Room Air Weight: 232 lb Body Mass Index (BMI) 45.3 Intake and Output for Last 24 Hours 02/11/18 02/12/18 02/13/18 23:59 23:59 23:59 Intake Total 2312 / 2312 Output Total 717 / 717 4100 / 4100 500 / 500 Balance -717 / -717 -1788 / -1788 -500 / -500 POC Glucose 02/12/18 07:35 POC Glucose 91 Medical Necessity - Tobacco Use Smoking Status: Never smoker Assessment/Plan All Active Problems (Last Reviewed 02/05/18 @ 10:22 by Bing Robins) Elevated blood pressure affecting in third trimester, antepartum (Acute) Severe preeclampsia (Acute) Abdominal pain affecting (Acute) Gestational diabetes mellitus in third trimester (Acute) Anemia during in third trimester (Acute) GBS (group B streptococcus) UTI complicating (Acute) with history of infertility (Acute) screening encounter (Acute) Body mass index (BMI) of 40.1 to 44.9 in adult (Acute) Abnormal glucose affecting (Resolved) Evaluate anatomy not seen on prior sonogram (Resolved) PPD #2: Continue current dose labetalol 200mg bid. Blood glucose well controlled. Consult with Dr. Garcia concerning tremors. Pain controlled.
[2018-02-13] MEDS: Labetalol 200 MG Tablet PO (08:39)
[2018-02-13] MEDS: 0.9% Saline Lock 10 ML Syringe IV (08:39)
[2018-02-13] MEDS: Labetalol 100 MG/20 ML Vial 20 MG IV (17:03)
[2018-02-13] MEDS: Labetalol 200 MG Tablet 300 MG PO (18:20)
[2018-02-14] MEDS: NIFEdipine 30 MG Tablet PO (00:07)
[2018-02-14 02:30] VITALS: BP 148/68; PULSE 79; RESP 18; TEMP 36.3
[2018-02-14] MEDS: Acetaminophen 500 MG Tablet 1000 MG PO ×2 (04:15→12:36)
[2018-02-14] MEDS: 0.9% Saline Lock 10 ML Syringe IV (05:58)
[2018-02-14 06:00] VITALS: BP 130/66; PULSE 77; RESP 18; TEMP 36.2
[2018-02-14 10:00] VITALS: BP 134/62; PULSE 75; RESP 18; TEMP 36.3; O2SAT 100
[2018-02-14 12:00] VITALS: BP 127/65
[2018-02-14 12:44] VITALS: BP 157/99; PULSE 77; RESP 18; TEMP 36.4; O2SAT 97
[2018-02-14 16:20] VITALS: BP 146/72; PULSE 86; RESP 16; TEMP 36.6
[2018-02-14] MEDS: Ketorolac 10 MG Tablet PO (16:43)
--- NOTE | 2018-02-14 17:16 | PCM.PN.OB ---
Patient Problems: Active and Suspected Problems (Last Reviewed 02/05/18 @ 10:22 by Bing Robins) Severe preeclampsia (Acute) Subjective: elevated bps last night- imrpoved now with adding procardia and increasing the labetalol. no POLANCO BV - Physical Exam General: Alert, Oriented x3 Vital Signs Temp Pulse Resp BP Pulse Ox 97.8 F 86 16 146/72 H 97 02/14/18 16:20 02/14/18 16:20 02/14/18 16:20 02/14/18 16:20 02/14/18 12:44 Oxygen Delivery Method Room Air Weight: 232 lb Body Mass Index (BMI) 45.3 Intake and Output for Last 24 Hours 02/12/18 02/13/18 02/14/18 23:59 23:59 23:59 Intake Total 2312 / 2312 Output Total 4100 / 4100 500 / 500 Balance -1788 / -1788 -500 / -500 Medical Necessity - Tobacco Use Smoking Status: Never smoker Assessment/Plan All Active Problems (Last Reviewed 02/05/18 @ 10:22 by Bing Robins) Elevated blood pressure affecting in third trimester, antepartum (Acute) Severe preeclampsia (Acute) Abdominal pain affecting (Acute) Gestational diabetes mellitus in third trimester (Acute) Anemia during in third trimester (Acute) GBS (group B streptococcus) UTI complicating (Acute) with history of infertility (Acute) screening encounter (Acute) Body mass index (BMI) of 40.1 to 44.9 in adult (Acute) Abnormal glucose affecting (Resolved) Evaluate anatomy not seen on prior sonogram (Resolved) s/p severe preeclampsia- continue labetalol and procardia dc home fu in 1 week home bp monitoring precautions reviewed
--- NOTE | 2018-02-14 17:17 | PCM.DCVAG ---
Discharge Diet: No Restrictions Discharge Activity: Return to Normal Activity, May not drive while taking narcotic pain medications., May Shower May resume sexual activity in: 4-6 weeks Call your doctor if your incision/area has: Continuous Slow Oozing, Sudden Increased Bleeding, Increased Pain/ Swelling, Increased Redness, Foul Smelling Discharge Additional Instructions: If you experience any of the following, contact your healthcare provider. Bleeding that soaks a pad every hour for 2 hours Fever 100.4 or higher Unrelieved incision or abdominal pain Swelling, redness, discharge or bleeding from your incision or episiotomy site Your incision begins to separate Problems urinating (including inability to urinate or burning while urinating). Visual changes Severe headache Flu-like symptoms Pain or redness in one of both of your breasts Pain, warmth, tenderness or swelling in your legs, especially the calf area Frequent nausea and vomiting Symptoms of depression or anxiety If you experience any of the following, call 911 or go to the nearest Emergency Room. Chest pain Problems breathing Seizure activity Partial or complete paralysis of a body part, slurred speech, weakness or drooping of the face, or a sudden inability to walk or hold your balance Allergies/Adverse Reactions: Allergies sumatriptan [From Imitrex] Allergy (Mild, Verified 02/05/18 10:23) Other Penicillins Allergy (Verified 02/05/18 10:23) Unknown Medications to take at Discharge vitamin,calcium,ciobhksh-pwyl-quswz acid tablet 1 tab PO QDAY 07/29/17 blood sugar diagnostic strips See Dose Instructions .ROUTE .MEDSUPPLY #100 ea 12/18/17 blood-glucose meter See Dose Instructions .ROUTE .MEDSUPPLY #1 ea 12/18/17 Humalog 4 unit SQ PRN PRN 02/10/18 Labetalol [Trandate (Beta Nicole)] 300 mg PO BID 14 Days #100 tab 02/14/18 Naproxen [Naprosyn] 250 - 500 mg PO Q8H PRN PRN #30 tab 02/14/18 Nifedipine [Procardia Xl] 30 mg PO DAILY #30 tab.er.24 02/14/18 Oxycodone HCl/Acetaminophen [Percocet 5-325] 1 - 2 tablet PO Q4H PRN PRN 7 Days #28 tablet 02/14/18 The following prescriptions were given: Oxycodone HCl/Acetaminophen [Percocet 5-325] 1 - 2 tablet PO Q4H PRN PRN 7 Days #28 tablet PRN Reason: Moderate-Severe pain Naproxen [Naprosyn] 250 - 500 mg PO Q8H PRN PRN #30 tab PRN Reason: MILD PAIN Nifedipine [Procardia Xl] 30 mg PO DAILY #30 tab.er.24 Labetalol [Trandate (Beta Nicole)] 300 mg PO BID 14 Days #100 tab Please Follow Up With: Mili Garcia MD - [phone] When: Call to make an appointment with your doctor in 6 weeks. If you had elevated Blood pressure or 4th degree laceration you will need to be seen in 2 weeks. Primary Care Physician: Saeed Maldonado MD [Primary Care Provider] - Test Results: Test results from this visit will be discussed in further detail at your follow-up appointment, if applicable.
--- NOTE | 2018-02-14 17:17 | PCM.DC.SUM ---
Discharge Date and Diagnosis - Problem List Patient Problems: Active and Suspected Problems (Last Reviewed 02/05/18 @ 10:22 by Bing Robins) Severe preeclampsia (Acute) Date of Admission: 02/11/18 Date of Discharge: 02/14/18 - Primary Discharge Diagnosis Active and Suspected Problems (Last Reviewed 02/05/18 @ 10:22 by Bing Robins) Severe preeclampsia (Acute) Hospital Course and Treatment Consultations 02/10/18 22:36 Consult: Anesthesia Routine Comment: Reason For Exam: Procedures: - - Summary of Care Provided: The patient is a 27 year old Fpresetned for IOL secodnary to severe preeclampsia. had a uncomplicated with recovery complicated by elevated bps which were controlle diwth labetalol and then procardia. stable for dc to home on day 3. Discharge Diet: No Restrictions Discharge Activity: Return to Normal Activity, May not drive while taking narcotic pain medications., May Shower May resume sexual activity in: 4-6 weeks Call your doctor if your incision/area has: Continuous Slow Oozing, Sudden Increased Bleeding, Increased Pain/ Swelling, Increased Redness, Foul Smelling Discharge Home Medications: Medications to take at Discharge vitamin,calcium,rephddse-fbyl-ajxdr acid tablet 1 tab PO QDAY 07/29/17 blood sugar diagnostic strips See Dose Instructions .ROUTE .MEDSUPPLY #100 ea 12/18/17 blood-glucose meter See Dose Instructions .ROUTE .MEDSUPPLY #1 ea 12/18/17 Humalog 4 unit SQ PRN PRN 02/10/18 Labetalol [Trandate (Beta Nicole)] 300 mg PO BID 14 Days #100 tab 02/14/18 Naproxen [Naprosyn] 250 - 500 mg PO Q8H PRN PRN #30 tab 02/14/18 Nifedipine [Procardia Xl] 30 mg PO DAILY #30 tab.er.24 02/14/18 Oxycodone HCl/Acetaminophen [Percocet 5-325] 1 - 2 tablet PO Q4H PRN PRN 7 Days #28 tablet 02/14/18 Following Prescrptions Were Given to Patient: Oxycodone HCl/Acetaminophen [Percocet 5-325] 1 - 2 tablet PO Q4H PRN PRN 7 Days #28 tablet PRN Reason: Moderate-Severe pain Naproxen [Naprosyn] 250 - 500 mg PO Q8H PRN PRN #30 tab PRN Reason: MILD PAIN Nifedipine [Procardia Xl] 30 mg PO DAILY #30 tab.er.24 Labetalol [Trandate (Beta Nicole)] 300 mg PO BID 14 Days #100 tab Primary Care Physician: Saeed Maldonado MD [Primary Care Provider] - Please Follow Up With: Mili Garcia MD - [phone] Medical Necessity - Tobacco Use Smoking Status: Never smoker Meaningful Use Info Meaningful Use Diagnoses (Choose all that apply): None applicable
--- NOTE | 2018-02-14 18:47 | NURSING ---
DISCHARGED TO [facility]. PATIENT IN [facility].
== END 2018-02-14 18:10 | disposition home or self-care (01) | DRG 774 ==
LOC: WPOUT 22:22 → WP 22:22 → WPOUT 22:31
PROVIDERS: Admitting Provider Obstetrics & Gynecology; Family Provider Family Medicine; PCP Family Medicine; Visit Provider Obstetrics & Gynecology
DX: O14.14 Severe pre-eclampsia complicating childbirth (principal); O75.3 Other infection during labor; O98.82 Other maternal infectious and parasitic diseases complicating childbirth; O24.424 Gestational diabetes mellitus in childbirth, insulin controlled; B95.1 Streptococcus, group B, as the cause of diseases classified elsewhere; O69.81X0 Labor and delivery complicated by cord around neck, without compression, not applicable or unspecified; O70.0 First degree perineal laceration during delivery; O99.02 Anemia complicating childbirth; D64.9 Anemia, unspecified; Z3A.36 36 weeks gestation of pregnancy; Z37.0 Single live birth
CPT/HCPCS: 59025; 59050; 82962; 85027; 86850; 86900; 99218; J7120; A4216; G0378; J2405

== ENCOUNTER → 2018-03-26 15:41 | Outpatient (CLI) | payer BC, SELFPAY ==
[2018-03-31 13:23] LABS: HPV Reflexed? NOT INDICATED
== END ==
PROVIDERS: Family Provider Family Medicine; PCP Family Medicine; Referring Provider Obstetrics & Gynecology; Visit Provider Obstetrics & Gynecology
DX: Z12.4 Encounter for screening for malignant neoplasm of cervix (principal)
CPT/HCPCS: 88175; G0145

== ENCOUNTER → 2018-04-29 06:56 | Outpatient (CLI) | payer BC, SELFPAY ==
[2018-04-29 10:18] LABS: Glucose 2 Hour Postprandial 108 mg/dL (<140)
== END ==
PROVIDERS: Family Provider Family Medicine; PCP Family Medicine; Referring Provider Obstetrics & Gynecology; Visit Provider Obstetrics & Gynecology
DX: O24.439 Gestational diabetes mellitus in the puerperium, unspecified control (principal)
CPT/HCPCS: 36415; 82950

== ENCOUNTER → 2020-01-26 06:12 | Outpatient (CLI) | payer BC, SELFPAY ==
[2018-05-14 10:01] VITALS: BMI 42.3
--- NOTE | 2020-01-26 07:48 | STRESSREP ---
Stress Test Report Date: 01-26-2020 Procedure: Exercise tolerance test/imaging study Indications: Chest pain Consent: Per the patient Procedure: The patient exercised on a Tan protocol for 6 minutes completing Stage II achieving a peak heart rate of 162 bpm (85 % predicted maximal heart rate) with a peak blood pressure 172/64 mmHg and a peak MET capacity of 7 METs. The baseline ECG demonstrated normal sinus rhythm. The peak exercise ECG demonstrated no obvious ECG changes. There were no cardiac dysrhythmias pretest, during exercise, or recovery. The functional capacity was considered average. There was no complaint of chest discomfort during exercise or recovery. The examination was discontinued secondary to dyspnea. Impression: 1. Technically adequate (percent predicted maximal heart rate greater than 85%) exercise tolerance test 2. Peak exercise ECG with no obvious ECG changes 3. There were no cardiac dysrhythmias pretest, during exercise, or recovery 4. Nuclear images pending Myocardial perfusion imaging study: Technique: The patient was injected with 14.8 mCi of technetium 99m Cardiolite and subsequently rest SPECT Cardiolite nuclear imaging was obtained in the horizontal long, vertical long, and short axis views. The patient exercised on a Tan protocol for 6 minutes completing Stage II achieving a peak heart rate of 162 bpm (85 % predicted maximal heart rate) with a peak blood pressure 172/64 mmHg and a peak MET capacity of 7 METs. The patient was injected with 44.1 mCi of technetium 99m Cardiolite and subsequently stress SPECT Cardiolite nuclear imaging was obtained in the horizontal long, vertical long, and short axis views. A gated Cardiolite study at peak stress was obtained. Interpretation: Rest and stress SPECT Cardiolite nuclear imaging status post realignment, normalization, and attenuation correction, demonstrates appearance at rest of a small area of subtle diminished tracer uptake near the mid to distal lateral segments which appears to normalize following stress. There is end systolic thickening and brightening. The gated Cardiolite study demonstrates myocardial thickening and inward wall motion. The reported LVEF is 60 %. Impression: 1. Rest and stress SPECT Cardiolite nuclear imaging demonstrate at rest a small area of diminished myocardial perfusion uptake in portions of the mid to distal lateral segments which appear to normalize following stress appearing compatible shifting soft tissue attenuation/artifact with no myocardial perfusion changes considered diagnostic for associated stress-induced myocardial ischemia. 2. The gated Cardiolite study reports an LVEF of 60 %. This note was generated with Dragon dictation software. It may contain incorrect words, spelling, and punctuation that were not noted in checking the note before signing.
== END ==
LOC: CVS 06:17
PROVIDERS: PCP Family Medicine; Referring Provider Family Medicine; Visit Provider Family Medicine
DX: R07.89 Other chest pain (principal); Z82.49 Family history of ischemic heart disease and other diseases of the circulatory system
CPT/HCPCS: 78452; 93017; A9500; A4216

== ENCOUNTER → 2020-03-17 06:49 | Outpatient (CLI) | payer BC, SELFPAY ==
[2020-03-07 15:13] VITALS: BMI 42.3
[2020-03-17 07:49] LABS: Glucose GTT- Fasting 109 mg/dL (74-106)
[2020-03-17 08:54] LABS: Glucose GTT-30 minutes 168 mg/dL (110-170)
[2020-03-17 08:57] LABS: Glucose GTT- 1 Hour 203 mg/dL (120-170)
[2020-03-17 10:02] LABS: Glucose GTT- 2 Hour 158 mg/dL (70-120)
[2020-03-17 11:12] LABS: Glucose GTT- 3 Hour 107 mg/dL (74-106)
== END ==
LOC: LAB 06:50
PROVIDERS: PCP Family Medicine; Referring Provider Obstetrics & Gynecology; Visit Provider Obstetrics & Gynecology
DX: Z13.1 Encounter for screening for diabetes mellitus (principal)
CPT/HCPCS: 36415; 82951; 82952

== ENCOUNTER 2020-04-12 08:58 | Outpatient (RCR) | payer BC, SELFPAY ==
[2018-05-14 10:01] VITALS: BMI 42.3
[2020-03-18 09:38] VITALS: BMI 42.3
== END 2020-04-12 23:59 | disposition home or self-care (01) ==
LOC: NS 08:58
PROVIDERS: Visit Provider Nurse Practitioner Women's Health
DX: Z71.3 Dietary counseling and surveillance (principal); E66.01 Morbid (severe) obesity due to excess calories; Z68.42 Body mass index [BMI] 45.0-49.9, adult
CPT/HCPCS: 97802

== ENCOUNTER → 2020-10-28 14:38 | Outpatient (CLI) | payer OTHER, SELFPAY ==
[2020-10-28 14:13] VITALS: BMI 42.3
[2020-10-28 17:21] LABS: Hemoglobin A1c 5.3 % (3.8-5.6)
== END ==
PROVIDERS: PCP Internal Medicine; Referring Provider Internal Medicine; Visit Provider Internal Medicine
DX: R73.03 Prediabetes (principal)
CPT/HCPCS: 36415; 83036

== ENCOUNTER → 2021-03-09 | Outpatient (CLI) | payer OTHER, SELFPAY ==
[2021-03-13 16:10] LABS: HPV APTIMA, High Risk Negative (Negative)
== END | disposition home or self-care (01) ==
LOC: LABSPEC 13:25
PROVIDERS: PCP Internal Medicine; Visit Provider Obstetrics & Gynecology
DX: Z12.4 Encounter for screening for malignant neoplasm of cervix (principal)
CPT/HCPCS: 87624; 88175; G0145

== ENCOUNTER → 2021-10-17 | Outpatient (CLI) | payer OTHER, SELFPAY ==
[2021-10-17 17:27] LABS: Hemoglobin A1c 5.3 % (3.8-5.6)
== END | disposition home or self-care (01) ==
LOC: LAB 14:11
PROVIDERS: PCP Internal Medicine; Referring Provider Nurse Practitioner Family; Visit Provider Nurse Practitioner Family
DX: R73.03 Prediabetes (principal)
CPT/HCPCS: 36415; 83036

== ENCOUNTER 2021-12-18 15:30 | Outpatient (RCR) | payer OTHER, SELFPAY | END 2021-12-21 23:59 | LOC: NS 15:30 | PROVIDERS: PCP Internal Medicine; Referring Provider Obstetrics & Gynecology; Visit Provider Obstetrics & Gynecology | DX: Z71.3 Dietary counseling and surveillance (principal); E66.9 Obesity, unspecified; Z68.41 Body mass index [BMI] 40.0-44.9, adult | CPT/HCPCS: 97802; 97803 ==

== ENCOUNTER → 2021-12-20 | Outpatient (CLI) | payer OTHER, SELFPAY ==
[2021-12-20 16:04] LABS: Basophil# 0.04 X10^3/uL; Basophil% 0.4 % (0-1); Eosinophil# 0.18 X10^3/uL; Eosinophils% 1.8 % (0-5); Hematocrit 37.7 % (37-47); Hemoglobin 12.5 g/dL (12.0-15.0); Lymphocyte % 30.7 % (19-41); Mean Corp Hgb Conc 33.2 g/dL (32-36); Mean Corpuscular Hgb 25.9 pg (27.0-32.0); Mean Corpuscular Volume 78.2 fL (81-99); Mean Platelet Vol. 10.3 fl (6.2-12.0); Monocyte# 0.54 X10^3/uL; Monocyte% 5.5 % (0-10); NRBC Flagged by Analyzer 0 % (0-5); Neutrophil # 5.98 X10^3/uL (2.7-7.7); Neutrophil % 61.3 % (47-70); Platelet Count 286 K/mm3 (150-450); RBC Distribution Width CV 14.1 % (11.6-14.6); RBC Distribution Width SD 39.8 fl (35.1-43.9); Red Blood Count 4.82 M/mm3 (4.2-5.4); White Blood Count 9.8 K/mm3 (4.4-11.0)
[2021-12-20 16:38] LABS: Thyroid Stim Hormone (TSH) 2.63 uIU/mL (0.358-3.74)
[2021-12-20 16:41] LABS: Vitamin D,25 Hydroxy 12.9 ng/mL
== END | disposition home or self-care (01) ==
LOC: LAB 15:16
PROVIDERS: PCP Internal Medicine; Referring Provider Obstetrics & Gynecology; Visit Provider Obstetrics & Gynecology
DX: R53.83 Other fatigue (principal)
CPT/HCPCS: 36415; 82306; 84443; 85025

== ENCOUNTER 2022-01-08 15:21 | Outpatient (RCR) | payer OTHER, SELFPAY | END 2022-01-21 23:59 | LOC: NS 15:21 | PROVIDERS: PCP Internal Medicine; Referring Provider Obstetrics & Gynecology; Visit Provider Obstetrics & Gynecology | DX: Z71.3 Dietary counseling and surveillance (principal); E66.9 Obesity, unspecified; Z68.41 Body mass index [BMI] 40.0-44.9, adult | CPT/HCPCS: 97803 ==

== ENCOUNTER 2022-02-21 08:30 | Outpatient (RCR) | payer OTHER, SELFPAY | END 2022-02-21 23:59 | LOC: NS 08:30 | PROVIDERS: PCP Internal Medicine; Referring Provider Obstetrics & Gynecology; Visit Provider Obstetrics & Gynecology | DX: Z71.3 Dietary counseling and surveillance (principal); E66.9 Obesity, unspecified; Z68.41 Body mass index [BMI] 40.0-44.9, adult | CPT/HCPCS: 97803 ==

== ENCOUNTER → 2022-03-19 | Outpatient (CLI) | payer OTHER, SELFPAY ==
[2022-03-19 13:40] LABS: Vitamin D,25 Hydroxy 37.5 ng/mL
[2022-03-19 13:42] LABS: ALB/GLOB Ratio 0.8 RATIO (0.9-2.4); AST(SGOT) 15 U/L (15-37); Alanine Aminotransfer ALT/SGPT 28 U/L (13-56); Albumin, Serum 3.5 g/dL (3.2-5.0); Alkaline Phosphatase 55 U/L (45-117); Anion Gap 7 (5-15); BUN 12 mg/dL (7-18); BUN/Creat Ratio 22.5 RATIO (10-20); Calcium,Total 8.9 mg/dL (8.5-10.1); Chloride 106 mmol/L (98-107); Cholesterol 163 mg/dL (200); Creatinine, Serum 0.53 mg/dL (0.55-1.02); EST Glomerular Filtration Rate 140 mL/min (>60); Est Glom Filt Rate - Afr Amer 169 mL/min (>60); Globulin 4.3 g/dL (2.2-4.2); Glucose 91 mg/dL (74-106); High Density Lipoprotein 31 mg/dL; Protein, Total 7.8 g/dL (6.4-8.2); Sodium Level 138 mmol/L (136-145); Triglycerides 310 mg/dL; Very Low Density Lipoprotein 62 mg/dL (5-40)
== END | disposition home or self-care (01) ==
PROVIDERS: PCP Internal Medicine; Referring Provider Internal Medicine; Visit Provider Internal Medicine
DX: E78.1 Pure hyperglyceridemia (principal); E55.9 Vitamin D deficiency, unspecified
CPT/HCPCS: 36415; 80053; 80061; 82306

== ENCOUNTER 2022-03-21 08:15 | Outpatient (RCR) | payer OTHER, SELFPAY | END 2022-03-23 23:59 | LOC: NS 08:15 | PROVIDERS: PCP Internal Medicine; Referring Provider Obstetrics & Gynecology; Visit Provider Obstetrics & Gynecology | DX: Z71.3 Dietary counseling and surveillance (principal); E66.9 Obesity, unspecified; Z68.41 Body mass index [BMI] 40.0-44.9, adult | CPT/HCPCS: 97803 ==

== ENCOUNTER 2022-04-04 08:30 | Outpatient (RCR) | payer OTHER, SELFPAY | END 2022-04-23 23:59 | LOC: NS 08:30 | PROVIDERS: PCP Internal Medicine; Referring Provider Obstetrics & Gynecology; Visit Provider Obstetrics & Gynecology | DX: Z71.3 Dietary counseling and surveillance (principal); E66.9 Obesity, unspecified; Z68.41 Body mass index [BMI] 40.0-44.9, adult | CPT/HCPCS: 97803 ==

== ENCOUNTER → 2022-04-17 | Outpatient (CLI) | payer OTHER, SELFPAY ==
--- NOTE | 2022-04-17 10:32 | EKG12_ITS ---
Test Reason : MED CHANGE Blood Pressure : / mmHG Vent. Rate : 081 BPM Atrial Rate : 081 BPM P-R Int : 146 ms QRS Dur : 086 ms QT Int : 396 ms P-R-T Axes : 021 067 040 degrees QTc Int : 460 ms Normal sinus rhythm Normal ECG Confirmed by JAJA BUCIO, STACEY ([id number]), editor managing newspaper NETTA MARES ([id number]) on 04/18/2022 11:05:11 AM Referred By: Mili Garcia Confirmed By:STACEY WILKINSON MD
== END | disposition home or self-care (01) ==
LOC: PSN 10:32
PROVIDERS: PCP Internal Medicine; Referring Provider Obstetrics & Gynecology; Visit Provider Obstetrics & Gynecology
DX: E88.81 Metabolic syndrome and other insulin resistance (principal)
CPT/HCPCS: 93005

== ENCOUNTER 2022-05-15 10:00 | Outpatient (RCR) | payer OTHER, SELFPAY | END 2022-05-23 23:59 | LOC: NS 10:00 | PROVIDERS: PCP Internal Medicine; Referring Provider Obstetrics & Gynecology; Visit Provider Obstetrics & Gynecology | DX: Z71.3 Dietary counseling and surveillance (principal); E66.9 Obesity, unspecified; Z68.41 Body mass index [BMI] 40.0-44.9, adult | CPT/HCPCS: 97803 ==

== ENCOUNTER 2022-06-05 08:40 | Outpatient (RCR) | payer OTHER, SELFPAY | END 2022-06-23 23:59 | LOC: NS 08:40 | PROVIDERS: PCP Internal Medicine; Referring Provider Obstetrics & Gynecology; Visit Provider Obstetrics & Gynecology | DX: Z71.3 Dietary counseling and surveillance (principal); E66.9 Obesity, unspecified; Z68.41 Body mass index [BMI] 40.0-44.9, adult | CPT/HCPCS: 97803 ==

== ENCOUNTER 2022-06-26 08:30 | Outpatient (RCR) | payer OTHER, SELFPAY | END 2022-07-24 23:59 | LOC: NS 08:30 | PROVIDERS: PCP Internal Medicine; Referring Provider Obstetrics & Gynecology; Visit Provider Obstetrics & Gynecology | DX: Z71.3 Dietary counseling and surveillance (principal); E66.9 Obesity, unspecified; Z68.41 Body mass index [BMI] 40.0-44.9, adult | CPT/HCPCS: 97802 ==

== ENCOUNTER 2022-08-08 15:37 | Emergency (ER) | payer OTHER, SELFPAY ==
[2022-08-08 15:38] VITALS: BP 179/101; PULSE 100; RESP 18; TEMP 36.2; O2SAT 99; BMI 41.0
--- NOTE | 2022-08-08 15:59 | EDS_ITS ---
HPI History of Present Illness Chief Complaint: Back Narrative Narrative: Patient states that she tweaked her back on work Saturday. She is not exactly sure what she did. But she did a lot of lifting bending and pushing. She has been sore in the left lower back ever since. Occasionally the pain radiates down the left lateral thigh but does not even get to the knee. She has no bowel or bladder dysfunction. No weakness. No numbness beyond the knee. No recent infections. She states occasionally that feels like the pain might be moving up her back but it is mostly at the left lower back. No fevers or chills. No coughing or trouble breathing's with sciatica before. She tried some lvdx-wvr-lbvmfuj Motrin and Aleve and hot showers. They help temporarily. [facility] Medical History Abnormal glucose Anxiety with depression Borderline type 2 diabetes mellitus GERD (gastroesophageal reflux disease) Gestational diabetes Hyperlipidemia Hypertension Migraines Preventative health care Right hip pain Seasonal allergies Home Medications fenofibrate 54 mg tablet 54 mg PO DAILY 05/14/22 [History Last Taken Unknown] triamterene 37.5 mg-hydrochlorothiazide 25 mg tablet 1 tab PO QAM 05/14/22 [History Last Taken Unknown] phentermine 37.5 mg tablet (Adipex-P) 37.5 mg PO QDAY #30 tabs 05/15/22 [Rx Last Taken Unknown] cyclobenzaprine 10 mg tablet 10 mg PO TID PRN Muscle Spasm #20 TABLETS 08/08/22 [Rx Last Taken Unknown] naproxen 500 mg tablet 500 mg PO BID #14 tabs 08/08/22 [Rx Last Taken Unknown] Allergy/AdvReac Type Severity Reaction Status Date / Time sumatriptan [From Imitrex] Allergy Mild Other Verified 08/08/22 15:41 Penicillins Allergy Unknown Verified 08/08/22 15:41 Family History Grandfather Myocardial infarction, Onset Age: 52 Brother Asthma Mother Anemia Hypertension Surgical History Hx laparoscopic cholecystectomy Social History household members: spouse current occupational status: employed current occupation: [employer] Smoking Status: Never smoker Electronic Cigarette Use: not used alcohol intake: never substance use type: does not use caffeine: Yes what type of physical activity do you participate in: none seatbelt use: always do you feel safe at home: Yes additional social history: Mary Hopper Patient works in [employer] dietary ROS ROS ED Constitutional Constitutional ED: Denies chills, fever(s) or subjective ENT ENT ED: Denies sore throat Cardiovascular Cardiovascular: Denies chest pain or palpitations Respiratory/Chest Respiratory/Chest: Denies dyspnea Gastrointestinal Gastrointestinal: Denies abdominal pain, diarrhea, nausea or vomiting Genitourinary Genitourinary ED: Denies dysuria, hematuria or urinary frequency Musculoskeletal Musculoskeletal: Reports back pain; Denies neck pain Integumentary Denies abscess, Abrasions or rash Neurologic Neurologic: Denies paresthesias or weakness Endocrine Endocrinology: Denies polydipsia or polyuria Hematologic/Lymphatic Hematologic/Lymphatic: Denies easy bleeding or easy bruising Allergic/Immunologic Allergic/Immunologic ED: Denies urticaria EXAM Physical Exam Narrative Exam Narrative: Patient is awake alert and appropriate. She is consistent historian. She looks comfortable laying in bed. HEENT shows no sign of trauma. Mucous membranes are moist Neck shows no JVD. She has good range of motion and no tenderness. Chest shows easy respirations. Breath sounds are clear bilaterally. No pain with a deep breath. Saturations are 99% on room air showing no hypoxia. Heart is regular with a rate about 90. Peripheral pulses are normal x4 Abdomen is obese but benign. Back shows some low left paraspinal tenderness. She states she feels tight a little bit across her shoulders on the right but no real tenderness. There were no rashes seen. No central or bony tenderness. Extremities show no swelling. There is no cord. No asymmetry. No vesicles. Skin shows no rash Const Vital Signs: 08/08/22 15:38 Temperature 97.1 F L Temperature Source Temporal Pulse Rate 100 Respiratory Rate 18 Blood Pressure 179/101 H Blood Pressure Mean 127 Pulse Ox 99 Oxygen Delivery Method Room Air MDM MDM MDM Narrative Medical decision making narrative: Patient has a history of sciatica. She has had this before. She did do lifting straining and bending. She has an exam consistent with this. I do not think since x-rays or further imaging is necessary. She is not having any indication of neurologic deficit or recent infections. She has no red flags of back pain. There is no urinary symptoms and I do not think a UA is needed. No sign of fevers chills or infection or kidney disease that would prompt CBC or electrolytes. We will treat her with nonsteroidals muscle relaxants and I encouraged her to try ice rather than heat. We discussed reasons to return. Discharge Plan Triage Chief Complaint: Back ED Provider: Binh Neff Dx/Rx/DC Orders Clinical Impression: Lumbar back pain Instructions: ED Back Sprain/Strain Prescriptions: New cyclobenzaprine [cyclobenzaprine] 10 mg tablet 10 mg PO TID PRN (Reason: Muscle Spasm) Qty: 20 0RF naproxen 500 mg tablet 500 mg PO BID Qty: 14 0RF No Action triamterene-hydrochlorothiazid 37.5-25 mg tablet 1 tab PO QAM fenofibrate 54 mg tablet 54 mg PO DAILY phentermine [Adipex-P] 37.5 mg tablet 37.5 mg PO QDAY Qty: 30 0RF Rx Instructions: BMI 41 Primary Care Provider: Meghan Bowers Referrals: Meghan Bowers MD [Primary Care Provider] - 3-5 Days if not improving Disposition Disposition: Home, Self Care
== END 2022-08-08 16:29 | disposition home or self-care (01) ==
LOC: ED 16:02
PROVIDERS: Emergency Provider Emergency Medicine; PCP Internal Medicine; Visit Provider Emergency Medicine
DX: M54.50 Low back pain, unspecified (principal); I10 Essential (primary) hypertension; E78.5 Hyperlipidemia, unspecified; Z87.39 Personal history of other diseases of the musculoskeletal system and connective tissue
CPT/HCPCS: 99281; 99282

== ENCOUNTER → 2022-11-22 | Outpatient (CLI) | payer OTHER, SELFPAY ==
[2022-11-22 14:08] LABS: Hemoglobin A1c 5.4 % (3.8-5.6)
== END | disposition home or self-care (01) ==
PROVIDERS: PCP Internal Medicine; Referring Provider Nurse Practitioner Women's Health; Visit Provider Nurse Practitioner Women's Health
DX: E88.81 Metabolic syndrome and other insulin resistance (principal); R73.03 Prediabetes
CPT/HCPCS: 36415; 83036

== ENCOUNTER → 2023-03-21 | Outpatient (CLI) | payer OTHER, SELFPAY ==
[2023-03-21 11:17] LABS: T4 Free Direct 0.99 ng/dL (0.76-1.46); Thyroid Stim Hormone (TSH) 2.38 uIU/mL (0.358-3.74)
[2023-03-22 04:07] LABS: Thyroid Peroxidase AB < 9 IU/mL (0-34)
== END | disposition home or self-care (01) ==
LOC: LAB 09:48
PROVIDERS: Referring Provider Obstetrics & Gynecology; Visit Provider Obstetrics & Gynecology
DX: E01.0 Iodine-deficiency related diffuse (endemic) goiter (principal)
CPT/HCPCS: 36415; 84439; 84443; 86376

== ENCOUNTER → 2023-04-03 | Outpatient (CLI) | payer OTHER, SELFPAY ==
--- NOTE | 2023-04-03 11:44 | US_ITS ---
INDICATION: thyromegaly EXAMINATION: Ultrasound US Thyroid (eg thyroid, parathyroid, parotid) TECHNIQUE: Mijares scale and color doppler imaging was performed of the thyroid gland. COMPARISON: No relevant prior comparison study available FINDINGS: RIGHT THYROID LOBE: 4.7 x 1.2 x 1.5 cm, volume 4.4 mL. Parenchyma: The gland echotexture is homogenous. Thyroid vascularity is normal. LEFT THYROID LOBE: 3.8 x 1.4 x 1.1 cm, volume 2.9 mL. Parenchyma: The gland echotexture is homogenous. Thyroid vascularity is normal. ISTHMUS: 0.3 cm in maximum AP dimension. Estimated total number of nodules greater than equal to 1 cm: 0. [employer] Teacher nodules are described as follows: LYMPH NODES: No lymphadenopathy is seen in the tissue surrounding the thyroid gland. US/Thyroid IMPRESSION: Normal thyroid ultrasound. Electronically Signed: Joss Wall MD at 16:51 EDT ,
== END | disposition home or self-care (01) ==
LOC: US 11:44
PROVIDERS: Referring Provider Obstetrics & Gynecology; Visit Provider Obstetrics & Gynecology
DX: E01.0 Iodine-deficiency related diffuse (endemic) goiter (principal)
CPT/HCPCS: 76536

== ENCOUNTER → 2023-06-25 | Outpatient (CLI) | payer OTHER, SELFPAY ==
[2023-06-25 11:23] LABS: Absolute Lymphocyte Count 2.93 X10^3/uL (0.83-4.51); Absolute Neutrophil Count 5.6 X10^3/uL (2.0-7.7); Basophil# 0.04 X10^3/uL; Basophil% 0.4 % (0-1); Eosinophil# 0.16 X10^3/uL; Eosinophils% 1.7 % (0-5); Hematocrit 43.2 % (37-47); Hemoglobin 13.9 g/dL (12.0-15.0); Lymphocyte # 2.93 X10^3/ul (0.83-4.51); Lymphocyte % 31.2 % (19-41); Mean Corp Hgb Conc 32.2 g/dL (32-36); Mean Corpuscular Hgb 25.9 pg (27.0-32.0); Mean Corpuscular Volume 80.6 fL (81-99); Mean Platelet Vol. 10.8 fl (6.2-12.0); Monocyte% 6.4 % (0-10); NRBC Flagged by Analyzer 0 % (0-5); Neutrophil # 5.62 X10^3/uL (2.7-7.7); Platelet Count 369 K/mm3 (150-450); RBC Distribution Width CV 14.4 % (11.6-14.6); RBC Distribution Width SD 41.9 fl (35.1-43.9); Red Blood Count 5.36 M/mm3 (4.2-5.4); White Blood Count 9.4 K/mm3 (4.4-11.0)
[2023-06-25 12:00] LABS: Vitamin D,25 Hydroxy 16.2 ng/mL
[2023-06-25 12:01] LABS: ALB/GLOB Ratio 0.8 RATIO (0.9-2.4); AST(SGOT) 17 U/L (15-37); Alanine Aminotransfer ALT/SGPT 31 U/L (13-56); Albumin, Serum 3.7 g/dL (3.2-5.0); Alkaline Phosphatase 57 U/L (45-117); Anion Gap 3 (5-15); BUN 12 mg/dL (7-18); BUN/Creat Ratio 17.4 RATIO (10-20); Calcium,Total 10.3 mg/dL (8.5-10.1); Chloride 104 mmol/L (98-107); Cholesterol 222 mg/dL (200); Creatinine, Serum 0.69 mg/dL (0.55-1.02); EST Glomerular Filtration Rate 103 mL/min (>60); Est Glom Filt Rate - Afr Amer 125 mL/min (>60); Globulin 4.7 g/dL (2.2-4.2); Glucose 110 mg/dL (74-106); High Density Lipoprotein 35 mg/dL; Potassium 3.9 mmol/L (3.5-5.1); Protein, Total 8.4 g/dL (6.4-8.2); Sodium Level 135 mmol/L (136-145); Thyroid Stim Hormone (TSH) 3.72 uIU/mL (0.358-3.74); Triglycerides 361 mg/dL; Very Low Density Lipoprotein 72 mg/dL (5-40)
[2023-06-25 12:32] LABS: Microalbumin:Creatinine Ratio 798.2 mg/g CRE (<30 mg/g CRE)
[2023-06-25 13:04] LABS: Hemoglobin A1c 5.5 % (3.8-5.6)
== END | disposition home or self-care (01) ==
LOC: LAB 10:04
PROVIDERS: PCP Family Medicine; Referring Provider Family Medicine; Visit Provider Family Medicine
DX: E55.9 Vitamin D deficiency, unspecified (principal)
CPT/HCPCS: 36415; 80053; 80061; 82043; 82306; 82570; 83036; 84443; 85025

== ENCOUNTER → 2023-07-10 | Outpatient (CLI) | payer OTHER, SELFPAY ==
--- OUTSIDE RECORDS SUMMARY | 2023-07-10 19:55 | XMS RPT_ITS | CCD ---
Author Name Unknown Address [address] [place] [address] Organization [facility] Care Team Providers Care Care Management Coordinator Name Role Phone Mili Garcia MD Unavailable [phone] Leonor Flores Unavailable Unavailable Leonor Flores Unavailable Unavailable JERARDO ARCHIBALD Unavailable Unavai MILI Esteves Unavailable Unavailnena walker NO PRIMARY CAREMD Unavailable Unavailable Mili Garcia MD Unavailable [phone] Saeed Maldonado MD Primary Care Provider [phone] Allergies Allergy Classification Reported Allergen(s) Allergy Type Date of Onset Reaction(s) Facility (6 sources) penicillin v drug allergy 7 [facility] (6 sources) SUMAtriptan drug allergy [address] [facility] (7 sources) SEASONAL ALLERGIES; Translations: [SEASONAL ALLERGIES] allergy to substance 0 [facility] (1 source) Penicillins Propensity to adverse reactions 0 [facility] Work Phone: (1 source) SUMAtriptan Drug Allergy 4 Other: See Comments [facility] Work Phone: (1 source) traMADol Drug Allergy 4 Intolerance [facility] Medications Completed/Discontinued Medications Medication Drug Class(es) Dates Sig (Normalized) Sig (Original) eletriptan 20 mg oral tablet (1 source) Serotonin-1b and Serotonin-1d Receptor Agonist Start: 11-06-2019 take 1 tablet by mouth every two hours as needed eletriptan (RELPAX) 20 mg tablet Take 1 tablet by mouth as needed. may repeat in 2 hours if necessary 9 tablet 3 11/06/2019 Active Problems Active Problems Problem Classification Problem Date Documented Date Episodic/Chronic Adjustment disorders (1 source) Stress; Translations: [Reaction to severe stress, unspecified] Onset: 11-10-2019 11-24-2019 Chronic Diabetes or abnormal glucose tolerance complicating ; childbirth; or the puerperium (1 source) History of gestational diabetes mellitus; Translations: [Personal history of gestational diabetes] 11-24-2019 Episodic Disorders of lipid metabolism (1 source) Dyslipidemia; Translations: [Hyperlipidemia, unspecified] Onset: 09-21-2016 11-10-2019 Chronic Esophageal disorders (1 source) Gastroesophageal reflux disease without esophagitis; Translations: [Gastro-esophageal reflux disease without esophagitis] Onset: 10-21-2015 10-21-2015 Chronic Essential hypertension (1 source) Essential hypertension; Translations: [Essential (primary) hypertension] Onset: 10-05-2016 10-05-2016 Chronic Female infertility (7 sources) 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; Translations: [Oligo-ovulation] Onset: 11-07-2016 02-20-2017 Chronic Headache; including migraine (1 source) Migraine without aura, not refractory ; Translations: [Migraine without aura, not intractable, without status migrainosus] Onset: 10-21-2015 10-21-2015 Chronic Menstrual disorders (6 sources) Secondary oligomenorrhea; Translations: [Secondary oligomenorrhea] Onset: 02-20-2017 02-20-2017 Chronic Other nutritional; endocrine; and metabolic disorders (6 sources) Body mass index (BMI) 40.0-44.9, adult; Translations: [Body mass index (BMI) 40.0-44.9, adult] Onset: 02-20-2017 02-20-2017 Chronic Other upper respiratory disease (1 source) Seasonal allergy; Translations: [Other seasonal allergic rhinitis] Onset: 03-10-2010 10-28-2013 Chronic Past or Other Problems Problem Classification Problem Date Documented Da te Episodic/Chronic Abdominal pain (1 source) Abdominal pain; Translations: [Unspecified abdominal pain] Onset: 02-26-2013 06-19-2021 Episodic Diabetes mellitus without complication (1 source) Hyperglycemia; Translations: [Hyperglycemia, unspecified] Onset: 11-24-2019 11-24-2019 Episodic Residual codes; unclassified (1 source) FH: premature coronary heart disease; Translations: [Family history of ischemic heart disease and other diseases of the circulatory system] Onset: 11-10-2019 11-24-2019 Episodic Results Test Name Value Interpretation Reference Range Facil ity Vital Signs Date Time Vital Sign Value Performing Clinician Naldo [email or web address] 02-20-2017 08:23-0400 BMI (Body Mass Index) 42.18 kg/m2 Mili Garcia MD [facility] 02-20-2017 08:23-0400 Body Temperature 96 [degF] Mili Garcia MD [facility] 02-20-2017 08:23-0400 Body Temperature 96.01 [degF] Mili Garcia MD [facility] 02-20-2017 08:23-0400 BP Diastolic 83 mm[Hg] Mili Garcia MD [facility] 02-20-2017 08:23-0400 BP Systolic 144 mm[Hg] Mili Garcia MD [facility] 02-20-2017 08:23-0400 Height 152.4 cm Mili Garcia MD [facility] 02-20-2017 08:23-0400 Pulse (Heart Rate) 79 /min Mili Garcia MD [facility] 02-20-2017 08:23-0400 Respiratory Rate 16 /min Mili Garcia MD [facility] 02-20-2017 08:23-0400 Weight 97.98 kg Mili Garcia MD [facility] Encounters Encounter Date Encounter Type Care Provider Facility Start: 01-22-2022 Telephone encounter Alondra johnson MD Work Phone: [facility] Procedures Date Procedure Procedure Detail Performing Clinician Start: 08-06-2018 Adult depression scr eening assessment Alondra Reese MD Work Phone: Start: 02-20-2017 End: 04-21-2017 Progesterone [Mass/volume] in Serum or Plasma Mili Garcia MD Work Phone: Plan of Treatment Date Care Activity Detail Author Start: 12-12-2027 Urine microalbumin profile DTAP,TDAP,TD (4 - Td or Tdap) [facility] Start: 03-26-2023 PAP TESTING PAP TESTING [facility] Start: 02-22-2022 Influenza vaccination INFLUENZA (#1) [facility] Start: 01-14-2021 ANNUAL PCP TEAM CHRONIC DISEASE VISIT ANNUAL PCP TEAM CHRONIC DISEASE VISIT [facility] Start: 08-06-2019 Adult depression screening assessment DEPRESSION SCREENING [facility] Start: 2018 HPV TESTING HPV TESTING [facility] Start: 02-20-2017 End: 04-21-2017 Progesterone *PROG Progesterone [facility] Start: 02-20-2017 End: 02-20-[address] [facility] Start: 02-20-2017 End: 02-20-2017 Progesterone *PROG Progesterone [facility] Start: 2006 BP CONTROLLED (<130/80) BP CONTROLLED (<130/80) [facility] Start: 2006 HEPATITIS C SCREENING HEPATITIS C SCREENING [facility] Start: 2006 HIV SCREENING HIV SCREENING [facility] Start: 03-08-1989 COVID-19 VACCINE (#1) COVID-19 VACCINE (#1) [facility] Immunizations Immunization Date Immunization Notes Care Provider Adenike duncan 03-09-2019 influenza, injectabl e, quadrivalent, contains preservative Alondra Reese MD Work Phone: [facility] 04-23-2018 influenza, injectabl e, quadrivalent, contains preservative Alondra Reese MD Work Phone: [facility] 03-10-2010 meningococcal polysaccharide vaccine (MPSV4) Alondra Reese MD Work Phone: [facility] 03-10-2010 tetanus toxoid, redu marley diphtheria toxoid, and acellular pertussis vaccine, adsorbed Alondra Reese MD Work Phone: [facility] 12-22-2003 tetanus toxoid, redu marley diphtheria toxoid, and acellular pertussis vaccine, adsorbed Alondra Reese MD Work Phone: [facility] Work Phone: Payers Date Payer Category Payer Unknown [place] PPO OOS [id number] 2016-Present [phone] [id number] [place] [address] PPO [id number] Unknown [id number] Social History Date Type Detail Facility Tobacco smoking stat us IAIS Never smoked tobacco [facility] Start: 01-26-2020 Alcohol intake Current drinke r of alcohol (finding) [facility] Start: 1990 Sex Assigned At Not on file [facility] Note 01-22-2022 Telephone Encounter - Chantal Sher - 01/22/2022 2:58 PM EDT Note Date & Type Note Facility 01-22-2022 Miscellaneous Notes Fax PCP ref call into the program, LVM documented in this encounter [facility] Summary Purpose Family History No Family History Records FoundNo Family History Records Found Advance Directives No Advanced Directives Records FoundNo Advanced Directives Records Found Additional Source Comments INFORMATION SOURCE (unrecogn ized section and content) DATE CREATED AUTHOR AUTHOR'S ORGANIZ ATION 01/24/2022 [facility] Source Comments (unrecognize d section and content) In the event this informatio n is protected by the Federal Confidentiality of Alcohol and Drug Abuse Patient Records regulations: The Federal rules restrict any use of the information to criminally investigate or prosecute any alcohol or drug abuse patient.[facility] Reason for Visit (unrecogniz ed section and content) Care Teams (unrecognized sec tion and content) FOR RECORDS PERTAINING TO PATIENTS WHO ARE OR HAVE BEEN ENROLLED IN A CHEMICAL DEPENDENCY/SUBSTANCEABUSE PROGRAM, SOME INFORMATION MAY BE OMITTED. This clinical summary was aggregated from multiple sources. Caution should be exercised in using it in the provision of clinical care. This summary normalizes information from multiple sources, and as a consequence, information in this document may materially change the coding, format and clinical context of patient data. In addition, data may be omitted in some cases. CLINICAL DECISIONS SHOULD BE BASED ON THE PRIMARY CLINICAL RECORDS. [employer] [facility]. provides no warranty or guarantee of the accuracy or completeness of information in this document.
== END | disposition home or self-care (01) ==
LOC: SL 19:49
PROVIDERS: PCP Family Medicine; Referring Provider Nurse Practitioner Acute Care; Visit Provider Nurse Practitioner Acute Care
DX: G47.10 Hypersomnia, unspecified (principal)
CPT/HCPCS: 95810

== ENCOUNTER → 2024-01-06 | Outpatient (CLI) | payer OTHER, SELFPAY ==
[2024-01-06 11:33] LABS: ALB/GLOB Ratio 0.9 RATIO (0.9-2.4); AST(SGOT) 73 U/L (15-37); Alanine Aminotransfer ALT/SGPT 62 U/L (13-56); Albumin, Serum 3.7 g/dL (3.2-5.0); Alkaline Phosphatase 50 U/L (45-117); Anion Gap 9 (5-15); BUN 12 mg/dL (7-18); BUN/Creat Ratio 21.3 RATIO (10-20); Calcium,Total 9.2 mg/dL (8.5-10.1); Chloride 104 mmol/L (98-107); Creatinine, Serum 0.56 mg/dL (0.55-1.02); EST Glomerular Filtration Rate 130 mL/min (>60); Est Glom Filt Rate - Afr Amer 157 mL/min (>60); Globulin 4.3 g/dL (2.2-4.2); Glucose 113 mg/dL (74-106); Sodium Level 136 mmol/L (136-145)
[2024-01-06 18:54] LABS: Hemoglobin A1c 5.5 % (3.8-5.6)
== END | disposition home or self-care (01) ==
LOC: LAB 10:08
PROVIDERS: PCP Family Medicine; Referring Provider Family Medicine; Visit Provider Family Medicine
DX: E55.9 Vitamin D deficiency, unspecified (principal)
CPT/HCPCS: 36415; 80053; 82306; 83036

== ENCOUNTER 2024-05-18 09:30 | Outpatient (RCR) | payer OTHER, SELFPAY ==
--- NOTE | 2024-04-27 15:45 | HP.PTEVAL ---
Patient's Visit Information Visit Information Visit Information: CHRISSY PICHARDO is a 33 year old F referred to Physical Therapy by ERICK Harp with a diagnosis of R knee strain. Date of Evaluation: 04/27/24 Physical Therapist: MAGALIE Dey Visit Plan Frequency: 2x /Week Duration: 2 Months Plan: 2X/ week for 6 weeks for R hip and knee strength, core strength, gait training, functional training, stairs, with HEP and modalities as needed HEP;; Quad sets, Heel slides, SLR Subjective Subjective: 10 years ago knee into the concrete at [facility] and about 2 weeks ago she went up the stairs and caught her foot just right and jammed up her leg (mostly just the knee). Woke up next morning and could not put weight on it. urgent care and this past Saturday Dr Fairchild thought MCL or cartilage. Dr Bravo thinks strained her knee but needs to do PT first. She is on her feet at work. She is able to work right now but it causes pain. She has burning and pinching. She has stairs at home and if she leads with her good foot she is good. She can lead with her L leg going up and R going down and uses a rail. She is sleeping at night. Her knee will wake her if she rolls in the night. She wears her brace for work and elevates when she can. Pain R knee pain: Pain Intensity (Out of 10): 6 Objective Objective: Gait: walks with decrease stance time on the R LE and decreased heel to toe gait pattern Stairs: up stairs with L leg and down with the R leg first with B hand rails. R knee AROM -5 t0 71 degrees knee flexion L knee AROM 0-124 LE MMT: R hip flex 7.9 and L hip flex12.7 R knee ext 12.8 and L 25.5 R knee flex 7.7 and L knee flex 13.4 R hip abd 10.6 and L 11.7 R hip ext 12.8 and L 13.9 R supra patella 46 and infra patella 41 L supra 46.8 and L 40.8 Pt is able to SLR on the R with some increase pain Balance/Special Test Scores Lower Extremity Functional Score: 46 Goals Goal 1:: I HEP Goal Time Frame: 6-8 Weeks Goal 2:: Increase R knee AROM (at the time of the eval: R knee AROM -5 t0 71 degrees knee flexion L knee AROM 0-124). Goal Time Frame: 6-8 Weeks Goal 3:: Be able to go up and down stairs recip with 1 hand rail Goal Time Frame: 6-8 Weeks Goal 4:: Walk with no antalgic gait Goal Time Frame: 6-8 Weeks Rehabilitation Potential Rehabilitation Potential: Good Anticipated Interventions Patient/Client Instruction: Educate patient on: Condition and Plan of Care For the Purpose of:: To decrease pain, To decrease swelling/inflammation, To increase ROM, To improve nutrient delivery to tissue, To improve muscle performance and motor function, To improve ability to perform ADL's, To increase tolerance to activity/condition/position, To improve performance and independence with ADL's, To decrease level of supervision to perform tasks, To improve ability of physical actions for home/community/work/leisure, To improve gait and locomotor functions, To improve health of tissue, To decrease soft tissue restriction, To increase flexibility/ROM and To improve endurance Therapeutic Exercise to Include: Strength training, Endurance training, Body mechanics, Postural training, Flexibilty training, Gait and locomotor training, Passive ROM and Active ROM For the Purpose of:: To decrease pain, To decrease swelling/inflammation, To improve nutrient delivery to tissue, To increase oxygenation perfusion, To improve muscle performance and motor function, To improve ability to perform ADL's, To increase tolerance to activity/condition/position, To improve performance and independence with ADL's, To decrease level of supervision to perform tasks, To improve ability of physical actions for home/community/work/leisure, To improve gait and locomotor functions, To improve health of tissue, To increase flexibility/ROM, To improve endurance, To improve balance and To improve safety with gait Functional Training to Include: Gait training For the Purpose of:: To improve gait and locomotor functions IF ES: Yes Cryotherapy (ice pack, ice massage): Yes Thermo therapy (hot pack): Yes Ultrasound (thermal/non thermal): Yes For the Purpose of:: To decrease pain, To decrease swelling/inflammation, To increase ROM, To improve nutrient delivery to tissue and To improve muscle performance and motor function Text: Thank you for the opportunity to evaluate your patient. For Medicare and Medicare HMO plans, please review the plan of care and approve it. It will need to be FAXED BACK to us at [phone] for Medicare purposes. For Medicare only, by signing this I certify the plan of care. Please let me know if there are questions or concerns regarding this plan of care. Physician Signature: Date:
--- NOTE | 2024-05-18 12:08 | HP.PTDCSUM ---
Discharge Summary D/C summary: It has been my pleasure to treat CHRISSY PICHARDO referred by ERICK Harp, with the diagnosis of R knee strain for a total of 6 visit(s). Discharge Date: 05/18/24 Please see the following information for a summary of their discharge status. Subjective Subjective: Pt late due to got time mixed up. She reports R burning and prickly. Pt reports that she is no better but not worse after PT. They have not been able to do much in PT due to increase pain and cramping. She feels she has a little more flexibility but other than that no improvement. Still getting catching with heel slides. She has had it lock up on her once and she also got some cramping that she had to stop working. She does have more ROM and able to put more weight through her R leg. Pain R knee pain: Pain Intensity (Out of 10): 4 Overall Improvement % Improvement: 15 Objective Objective/Function: Steps: two feet to a stair with a railing. R knee AROM -4 112 degrees knee flexion Gait: Still walks with decrease stance time on the R. Goals Goal 1:: I HEP Goal Progress: Goal Met Goal 2:: Increase R knee AROM (at the time of the eval: R knee AROM -5 t0 71 degrees knee flexion L knee AROM 0-124). Goal 3:: Be able to go up and down stairs recip with 1 hand rail Goal 4:: Walk with no antalgic gait Plan Plan: 2X/ week for 6 weeks for R hip and knee strength, core strength, gait training, functional training, stairs, with HEP and modalities as needed HEP;; Quad sets, Heel slides, SLR Pt called in after PT today and said Dr nazario to cancel the rest of PT D/C Information Discharge Comments: DC PT back to d/c sentence: If there are questions or concerns regarding this patient's physical therapy, please feel free to call me at [phone]. Thank you for the referral of this patient. Sincerely, Brandi Maier, MPT Balance/Gait/Functional tests Balance/Special Test Scores Lower Extremity Functional Score: 51 Improvement % Improvement: 15
== END 2024-05-18 19:00 | disposition home or self-care (01) ==
LOC: PT 09:30
PROVIDERS: PCP Family Medicine; Referring Provider Physician Assistant; Visit Provider Physician Assistant
DX: S86.911D Strain of unspecified muscle(s) and tendon(s) at lower leg level, right leg, subsequent encounter (principal)
CPT/HCPCS: 97110; 97161; 97530

== ENCOUNTER → 2024-06-29 | Outpatient (CLI) | payer OTHER, SELFPAY ==
--- NOTE | 2024-06-29 18:08 | MRI_ITS ---
STUDY: MRI RIGHT KNEE REASON FOR EXAM: Female, 33 years old. Pain. Rule out medial meniscal tear. Medial pain, injury 04/20/2024. TECHNIQUE: Standardized fat and water weighted pulse sequences were obtained in all 3 orthogonal planes. COMPARISON: Right knee radiographs dated 04/14/2024. FINDINGS: Normal medial meniscus. Normal hyaline cartilage of the medial femorotibial compartment. Normal medial femoral condyle and tibial plateau. Normal medial collateral ligamentous complex (MCL). Normal distal semimembranosus, gracilis and semitendinosus tendons. Normal lateral meniscus. Normal hyaline cartilage of the lateral femorotibial compartment. Normal lateral femoral condyle and tibial plateau. Normal proximal tibiofibular articulation. Normal lateral collateral (fibular) ligament. Normal popliteus tendon. Normal biceps femoris tendon. Normal anterior cruciate ligament (ACL). Normal posterior cruciate ligament (PCL). There is mild lateral patellar subluxation. Normal hyaline cartilage of the patellofemoral compartment. Normal medial and lateral patellar retinaculum. Normal quadriceps tendon. Normal patellar tendon. Normal Hoffa''s fat pad. There is a tiny joint effusion. There is a tiny popliteal cyst. There is mild subcutaneous soft tissue edema along the anterior aspect of the knee. The otherwise visualized osseous structures are unremarkable. MRI/Lower Ext Joint Only (Routine) IMPRESSION: Mild lateral patellar subluxation. Mild subcutaneous soft tissue edema along the anterior aspect of the knee. Tiny joint effusion, with a tiny popliteal cyst. No discrete meniscal tear or acute ligamentous injury. Electronically Signed: Gilberto Chaves MD at 9:41 EST ,
== END | disposition home or self-care (01) ==
LOC: MRI 14:59
PROVIDERS: PCP Family Medicine; Referring Provider Orthopaedic Surgery Sports Medicine; Visit Provider Orthopaedic Surgery Sports Medicine
DX: M25.561 Pain in right knee (principal)
CPT/HCPCS: 73721

== ENCOUNTER → 2024-06-30 | Outpatient (CLI) | payer OTHER, SELFPAY ==
[2024-06-30 16:34] LABS: Hemoglobin A1c 5.6 % (3.8-5.6)
== END | disposition home or self-care (01) ==
LOC: MFPLAB 13:34
PROVIDERS: PCP Family Medicine; Referring Provider Family Medicine; Visit Provider Family Medicine
DX: R73.09 Other abnormal glucose (principal)
CPT/HCPCS: 36415; 83036

== ENCOUNTER 2024-09-29 10:23 | Outpatient (CLI) | payer OTHER, SELFPAY ==
[2024-09-29 14:33] LABS: Vitamin D,25 Hydroxy 17.3 ng/mL (30-100)
== END 2024-09-29 23:59 | disposition home or self-care (01) ==
LOC: LAB 10:26
PROVIDERS: PCP Family Medicine; Referring Provider Family Medicine; Visit Provider Family Medicine
DX: E55.9 Vitamin D deficiency, unspecified (principal)
CPT/HCPCS: 82306

== ENCOUNTER 2024-11-11 15:07 | Emergency (ER) | payer OTHER, SELFPAY ==
[2024-11-11 15:07] VITALS: BP 192/107; PULSE 95; RESP 20; TEMP 36.6; O2SAT 100; BMI 43.3
[2024-11-11] MEDS: Diphth,Pertuss(Acell),Tet Vac 0.5 ML Vial IM (15:34)
--- NOTE | 2024-11-11 15:36 | EDS_ITS ---
HPI History of Present Illness Chief Complaint: Foreign Body Narrative Narrative: Chief complaint and HPI: Puncture wound to left plantar foot. 34-year-old female was walking in [facility] when she felt a sharp pain in her foot. She looked down and saw that a piece of mulch punctured through her croc into the plantar surface of her left foot. She states she took her shoe off and pulled the piece of mulch out. She is unsure if mulch is still in her foot. States that there was minimal bleeding. Not diabetic. Not on immunotherapy. Denies any fever, chills, nausea, vomiting. Denies any numbness or tingling. Denies any significant pain in the foot. Not up-to-date on tetanus. Review of systems: See HPI Medications: As listed on the chart Allergies: As listed on the chart PFSH: Per chart Vital signs: As listed on the chart. Reviewed. Physical exam: Gen: A&O x3, NAD Head: Normocephalic, atraumatic Eyes: No sclera icterus, conjunctiva clear ENT: Moist mucous membranes CV: Regular rate Resp: Nonlabored respiration Musc: Full ROM of all extremities including the left foot and ankle, no deformity, small puncture wound to the left foot on the plantar surface-no active bleeding, no erythema or warmth, no crepitus, no foreign body visualized or palpated, patient has the intact piece of mulch in her hand. DP/PT pulses +2. Good capillary refill. Skin: Warm, dry Neuro: Alert, oriented, grossly intact, sensation intact Psych: Cooperative, appropriate mood and affect [facility] Medical History Strain of right knee Hyperlipidemia Right hip pain Preventative health care Borderline type 2 diabetes mellitus Migraines GERD (gastroesophageal reflux disease) Hypertension Seasonal allergies Abnormal glucose Anxiety with depression Gestational diabetes Home Medications ?Medication ?Instructions ?Recorded ?Last Taken ?Type fenofibrate 54 mg tablet mg PO DAILY 06/27/23 Unknown History triamterene 37.5 tab PO DAILY 06/27/23 Unknow n History mg-hydrochlorothiazide 25 mg tablet valsartan 160 mg tablet mg PO DAILY 06/27/23 Unknown History cholecalciferol (vitamin D3) 25 25 mcg PO QDAY 4 Unknown History mcg (1,000 unit) capsule metformin 500 mg tablet 500 mg PO BID 03/23/24 Unkno wn History phentermine 37.5 mg tablet 37.5 mg PO QDAY 03/23/24 Un known History (Adipex-P) propranolol 40 mg tablet 40 mg PO .QD 03/23/24 Unknow n History sertraline 50 mg tablet 100 mg PO DAILY 07/02/24 Unk nown History tirzepatide 2.5 mg/0.5 mL mg subcut 07/02/24 Unknown H istory subcutaneous pen injector (Denita) ciprofloxacin HCl 500 mg tablet 500 mg PO BID 7 days # 14 tabs 11/11/24 Unknown Rx Allergy/AdvReac Type Severity Reaction Status Date / Time sumatriptan (From Imitrex) Allergy Mild Other Verified 11/11/24 15:07 Penicillins Allergy Unknown Verified 11/11/24 15:07 Family History Grandfather Myocardial infarction, Onset Age: 52 Brother Asthma Mother Anemia Hypertension Surgical History Hx laparoscopic cholecystectomy Social History household members: spouse current occupational status: employed current occupation: [employer] Smoking Status: Never smoker Electronic Cigarette Use: not used alcohol intake: never substance use type: does not use caffeine: Yes what type of physical activity do you participate in: none seatbelt use: always do you feel safe at home: Yes additional social history: [employer] Patient works in [employer] dietary EXAM Physical Exam Const Vital Signs: 11/11/24 15:07 Temperature 97.9 F Temperature Source Temporal Pulse Rate 95 Respiratory Rate 20 H Blood Pressure 192/107 H Blood Pressure Mean 135 Pulse Ox 100 Oxygen Delivery Method Room Air MDM MDM MDM Narrative Medical decision making narrative: 34-year-old female presents for evaluation of puncture wound through shoe. Removed the piece of mulch prior to arrival. See physical exam findings. No foreign body is present in the foot. I do not think any imaging is needed. Patient's wound will be cleaned. Tetanus will be updated given this was a puncture wound through shoe will place her on ciprofloxacin x 10 days to prevent infection with Pseudomonas. Follow-up with PCP. Return precautions explained. She confirmed understand the plan. Patient stable to discharge home. Impression: 1. Puncture wound through shoe 2. Concern for foreign body in foot Discharge Plan Triage Chief Complaint: Foreign Body ED Provider: Misbah Garcia Dx/Rx/DC Orders Clinical Impression: Puncture wound Instructions: ED Puncture Wound (General) Prescriptions: New ciprofloxacin HCl 500 mg tablet 500 mg PO BID 7 Days Qty: 14 0RF No Action metformin 500 mg tablet 500 mg PO BID phentermine [Adipex-P] 37.5 mg tablet 37.5 mg PO QDAY Rx Instructions: must administer 30 minutes before or 1-2 hours after breakfast propranolol 40 mg tablet 40 mg PO .QD cholecalciferol (vitamin D3) 25 mcg (1,000 unit) capsule 25 mcg PO QDAY triamterene-hydrochlorothiazid 37.5-25 mg tablet PO DAILY Patient Comments: TAKE 1 TABLET BY [id number] DAILY valsartan 160 mg tablet PO DAILY Patient Comments: TAKE 1 TABLET BY MOUTHTONCE DAILY fenofibrate 54 mg tablet PO DAILY Patient Comments: TAKE 1 TABLET BY MOUTHCONCE DAILY sertraline 50 mg tablet 100 mg PO DAILY Patient Comments: TAKE 1 TABLET BY MOUTHCONCE DAILY Mounjaro 2.5 mg/0.5 mL pen injector subcut Primary Care Provider: Srikanth Fairchild Referrals: Srikanth Fairchild MD [Primary Care Provider] - 3-5 Days Activity Restrictions/Additional Instructions: Monitor for signs of infection. Follow-up with primary care physician. You got your antibiotics. Print Language: Kazakh Disposition Disposition: Home, Self Care
[2024-11-11 15:54] VITALS: BP 134/78; PULSE 67; RESP 18; TEMP 36.6; O2SAT 99
== END 2024-11-11 16:01 | disposition home or self-care (01) ==
LOC: ED 15:43
PROVIDERS: Emergency Provider Surgery; PCP Family Medicine; Referring Provider Surgery; Visit Provider Surgery
DX: S91.332A Puncture wound without foreign body, left foot, initial encounter (principal); W45.8XXA Other foreign body or object entering through skin, initial encounter; Y92.512 Supermarket, store or market as the place of occurrence of the external cause; Z23 Encounter for immunization
CPT/HCPCS: 90471; 90715; 99282